=== PATIENT | female | born 1980 | race Caucasian/White ===

== ENCOUNTER 2016-12-18 12:53 | Inpatient (IN) | payer OTHER ==
[2016-12-18] VITALS (10 sets, daily range): BP systolic 102–137; BP diastolic 50–82; PULSE 70–89; RESP 16–18; TEMP 96.7–98.1; O2SAT 95–98
[~2016-12-18] VITALS: Ht 165.1 cm; Wt 106.3 kg
[~2016-12-18 12:53] MED LIST: ADVA250A INH; ALBU8I INH; IBUP600 PO; IMIT25TA PO; LEXA10TA PO; LORTA5 PO; METF-324 PO; TRAM50 PO
[2016-12-18] MEDS ORDERED: LEVO.05 PO (13:16)
[2016-12-18] MEDS ORDERED: VENTAER INH (13:16)
[2016-12-18] MEDS ORDERED: METF-382 PO (13:16)
[2016-12-18] MEDS ORDERED: ADVA250A INH (13:16)
[2016-12-18] MEDS ORDERED: PIOG15TA5 PO (13:16)
[2016-12-18] MEDS ORDERED: ESCI20TA PO (13:16)
[2016-12-18] MEDS ORDERED: SODIUM CHLOR 0.9% 1000 ML INJ 1,000 ML IV SCH (13:19)
[2016-12-18] MEDS ORDERED: LIDOCAINE VISCOUS 2% SOLN 15 ML UDC PO ONE (13:30)
[2016-12-18] MEDS ORDERED: ALUMINUM/MAGNESIUM/SIMETH 30 ML CUP PO ONE (13:30)
[2016-12-18] MEDS ORDERED: ONDANSETRON HCL 4 MG/2 ML VIAL IVP ONE (13:30)
[2016-12-18] MEDS ORDERED: MORPHINE SULFATE 4 MG/ML INJ IV PUSH ONE (13:30)
[2016-12-18] MEDS ORDERED: SODIUM CHLORIDE 0.9% FLUSH 10 ML FLUSH IV FLUSH PRN ×2 (13:30→16:45)
[2016-12-18 13:31] LABS: AUTOMATED NEUTROPHIL # 4.5 TH/MM3 (1.8-7.7); BASOPHIL % 0.3 % (0.0-2.0); EOSINOPHIL # 0.1 TH/MM3 (0-0.4); HEMATOCRIT 37.5 % (35.0-46.0); HEMO FLAGS DIFF FINAL; LYMPH % 25.7 % (9.0-44.0); LYMPHOCYTE # 1.8 TH/MM3 (1.0-4.8); MEAN CELL VOLUME 79.3 FL (80.0-100.0); MEAN CORPUSCULAR HEMOGLOBIN 26.1 PG (27.0-34.0); MEAN CORPUSCULAR HGB CONC 32.9 % (32.0-36.0); MONO % 5.8 % (0.0-8.0); NEUT % 67.2 % (16.0-70.0); PLATELET COUNT 224 TH/MM3 (150-450); RED BLOOD COUNT 4.72 MIL/MM3 (4.00-5.30); RED CELL DISTRIBUTION WIDTH 13.7 % (11.6-17.2); WHITE BLOOD COUNT 6.8 TH/MM3 (4.0-11.0)
--- NOTE | 2016-12-18 13:37 | PD ---
HPI Chief Complaint: Abdominal Pain Time Seen by Provider: 13:12 Travel History International Travel<30 days: No Contact w/Intl Traveler<30days: No Traveled to known affect area: No History of Present Illness HPI 36-year-old female with history of diabetes, here for evaluation of epigastric abdominal pain. Patient reports that the symptoms have been going on for last week, worse today. She reports that she had an upper endoscopy performed yesterday and was told that there is no gastritis or peptic ulcer disease. Pain is described as sharp/pressure like, sometimes worse after eating, sometimes worse with movements. Pain radiates up into her chest. No dyspnea. No known history of cardiac disease. Family history of cardiac disease in her father who recently had CABG. No fevers or chills. History of cholecystectomy and hysterectomy. No other abdominal surgeries. PFSH Past Medical History Asthma: Yes Blood Disorders: No Depression: Yes Cancer: No Cardiovascular Problems: Yes (RAPID HEART RATE; EVAL BY [employer]TE[employer]NCE - WNL) Diabetes: Yes Patient Takes Glucophage: Yes Diminished Hearing: No Endocrine: Yes Gastrointestinal Disorders: Yes (OCCAS ACID REFLUX ) Genitourinary: No Hepatitis: No Hiatal Hernia: No Hypertension: No Immune Disorder: No Medical other: No Musculoskeletal: No Neurologic: No Psychiatric: No Reproductive: Yes (IUD/ENDOMETRIOSIS/PELVIC PAIN/HEAVY MENSTRUATION) Respiratory: Yes (ASTHMA) Thyroid Disease: No Influenza Vaccination: No ?: Not : 2 Para: 2 Tubal Ligation: Yes (1999) Past Surgical History Abdominal Surgery: Yes (LAP CHOLECY 2014; INCISIONAL HERNIA REPAIR 05/06 ) AICD: No Body Medical Devices: NONE Cholecystectomy: Yes Gynecologic Surgery: Yes (TUBAL LIGATION 1999) Hysterectomy: Yes Joint Replacement: No Pacemaker: No Other Surgery: Yes (HERNIA REPAIR) Social History Alcohol Use: Yes (occ) Tobacco Use: No (quit 2 years ago) Substance Use: No Allergies-Medications (Allergen,Severity, Reaction): Coded Allergies: No Known Allergies (Unverified , 12/18/16) Reported Meds & Prescriptions Reported Meds & Active Scripts Active Reported Ventolin Hfa 18 GM Inh (Albuterol Sulfate) 90 Mcg/Act Aer 2 Puff INH Q4-6H PRN Advair Diskus Inh (Fluticasone-Salmeterol Inh) 250-50 Mcg/Blist Aer 1 Puff INH BID Rinse mouth after use. Synthroid (Levothyroxine Sodium) 50 Mcg Tab 50 Mcg PO DAILY Escitalopram (Escitalopram Oxalate) 20 Mg Tab 20 Mg PO DAILY Pioglitazone (Pioglitazone HCl) 15 Mg Tab 15 Mg PO DAILY Metformin ER (Metformin HCl) 1,000 Mg Adrián 1,000 Mg PO DAILY With evening meal Review of Systems Except as stated in HPI: all other systems reviewed are Neg Physical Exam Narrative GENERAL: Well-developed, well-nourished, comfortable, no acute distress. SKIN: Focused skin assessment warm/dry. HEAD: Atraumatic. Normocephalic. EYES: Pupils equal and round. No scleral icterus. No injection or drainage. ENT: Mucous membranes pink and moist. NECK: Trachea midline. No JVD. CARDIOVASCULAR: Regular rate and rhythm. RESPIRATORY: No accessory muscle use. Clear to auscultation. Breath sounds equal bilaterally. GASTROINTESTINAL: Abdomen soft, nondistended. Mild epigastric tenderness without peritoneal signs. Normal bowel sounds. MUSCULOSKELETAL: No obvious deformities. No clubbing. No cyanosis. No edema. NEUROLOGICAL: Awake and alert. No obvious cranial nerve deficits. Motor grossly within normal limits. Normal speech. PSYCHIATRIC: Appropriate mood and affect; insight and judgment normal. Data Data Last Documented VS Vital Signs Date Time Temp Pulse Resp B/P Pulse Ox O2 Delivery O2 Flow Rate FiO2 12/18/16 15:05 87 16 117/52 96 Room Air 12/18/16 12:59 98.1 Orders Complete Blood Count With Diff (12/18/16 13:19) Comprehensive Metabolic Panel (12/18/16 13:19) Lipase (12/18/16 13:19) Prothrombin Time / Inr (Pt) (12/18/16 13:19) Act Partial Throm Time (Ptt) (12/18/16 13:19) Urinalysis - C+S If Indicated (12/18/16 13:19) Ct Abd/Pel W Iv Contrast(Rout) (12/18/16 13:19) Iv Access Insert/Monitor (12/18/16 13:19) Ecg Monitoring (12/18/16 13:19) Oximetry (12/18/16 13:19) Morphine Inj (Morphine Inj) (12/18/16 13:30) Ondansetron Inj (Zofran Inj) (12/18/16 13:30) Sodium Chlor 0.9% 1000 Ml Inj (Ns 1000 M (12/18/16 13:19) Sodium Chloride 0.9% Flush (Ns Flush) (12/18/16 13:30) Electrocardiogram (12/18/16 13:19) Al-Mag Hy-Si 40-40-4 Mg/Ml Liq (Mag-Al P (12/18/16 13:30) Lidocaine 2% Viscous (Xylocaine 2% Visco (12/18/16 13:30) Ckmb (Isoenzyme) Profile (12/18/16 13:19) Troponin I (12/18/16 13:19) Sodium Chlor 0.9% 1000 Ml Inj (Ns 1000 M (12/18/16 14:00) Insulin Human Regular Inj (Novolin R Inj (12/18/16 14:00) Iohexol 350 Inj (Omnipaque 350 Inj) (12/18/16 14:30) Aspirin Chew (Aspirin Chew) (12/18/16 15:00) Nitroglycerin Sl (Nitrostat Sl) (12/18/16 15:00) Admit Order (Ed Use Only) (12/18/16 15:04) Labs Laboratory Tests Test 12/18/16 13:24 White Blood Count 6.8 TH/MM3 Red Blood Count 4.72 MIL/MM3 Hemoglobin 12.3 GM/DL Hematocrit 37.5 % Mean Corpuscular Volume 79.3 FL Mean Corpuscular Hemoglobin 26.1 PG Mean Corpuscular Hemoglobin 32.9 % Concent Red Cell Distribution Width 13.7 % Platelet Count 224 TH/MM3 Mean Platelet Volume 8.4 FL Neutrophils (%) (Auto) 67.2 % Lymphocytes (%) (Auto) 25.7 % Monocytes (%) (Auto) 5.8 % Eosinophils (%) (Auto) 1.0 % Basophils (%) (Auto) 0.3 % Neutrophils # (Auto) 4.5 TH/MM3 Lymphocytes # (Auto) 1.8 TH/MM3 Monocytes # (Auto) 0.4 TH/MM3 Eosinophils # (Auto) 0.1 TH/MM3 Basophils # (Auto) 0.0 TH/MM3 CBC Comment DIFF FINAL Differential Comment Prothrombin Time 10.6 SEC Prothromb Time International 1.0 RATIO Ratio Activated Partial 24.0 SEC Thromboplast Time Urine Collection Type CLEAN CATCH Urine Color STRAW Urine Turbidity CLEAR Urine pH 6.0 Urine Specific [place] 1.035 Urine Protein NEG mg/dL Urine Glucose (UA) 1000 OR GREATER mg/dL Urine Ketones NEG mg/dL Urine Occult Blood NEG Urine Nitrite NEG Urine Bilirubin NEG Urine Leukocyte Esterase NEG Urine Squamous Epithelial 0-5 /hpf Cells Urine Amorphous Sediment FEW Microscopic Urinalysis Comment CULT NOT INDICATED Urine Collection Time 1324 Sodium Level 137 MEQ/L Potassium Level 3.5 MEQ/L Chloride Level 100 MEQ/L Carbon Dioxide Level 22.1 MEQ/L Anion Gap 15 MEQ/L Blood Urea Nitrogen 7 MG/DL Creatinine 0.93 MG/DL Estimat Glomerular Filtration 68 ML/MIN Rate Random Glucose 427 MG/DL Calcium Level 8.5 MG/DL Total Bilirubin 0.3 MG/DL Aspartate Amino Transf 65 U/L (AST/SGOT) Alanine Aminotransferase 91 U/L (ALT/SGPT) Alkaline Phosphatase 74 U/L Total Creatine Kinase 91 U/L Troponin I LESS THAN 0.02 NG/ML Total Protein 7.2 GM/DL Albumin 3.2 GM/DL Lipase 266 U/L [facility] Medical Decision Making Medical Screen Exam Complete: Yes Emergency Medical Condition: Yes Differential Diagnosis ACS, pancreatitis, perforated bowel, gastritis, peptic ulcer disease, hepatobiliary disease, retained gallstone Narrative Course Vital signs are within normal limits. CBC is unremarkable. CMP is remarkable for random glucose of 427, AST 65, ALT 91, otherwise unremarkable. Lipase is 266. Cardiac enzymes are negative. UA shows 1000 or greater glucose. Bicarbonate is 22. The patient is not in DKA. CT abdomen pelvis: CONCLUSION: 1. Small fat-containing umbilical hernia. 2. Fat-containing ventral hernia upper abdomen. 3. Hepatomegaly and hepatic steatosis. 4. Diverticulosis without diverticulitis. Patient was given 2 L normal saline IV. She was made aware of all findings. She is still having some epigastric abdominal discomfort. She was also given 10 units of IV insulin. She was given a dose of aspirin as this could be a chest pain equivalent, and will be admitted for overnight observation for chest pain rule out ACS as well as hyperglycemia. Case discussed with [facility] hospitalist Dr. Gonzalez who will admit the patient to her service. Patient was given a dose of some with one nitroglycerin with significant improvement in pain. Diagnosis Primary Impression: Chest pain Qualified Code: R07.9 - Chest pain, unspecified type Additional Impressions: Epigastric abdominal pain Hyperglycemia Admitting Information Admitting Physician Requests: Observation Mikel Chiang MD Dec 18, 2016 13:37
[2016-12-18 13:38] LABS: BLOOD, URINE NEG (NEG); CHLORIDE 100 MEQ/L (98-107); KETONE, URINE NEG (NEG); NITRITE,URINE NEG (NEG); POTASSIUM 3.5 MEQ/L (3.5-5.1); SODIUM (NA) 137 MEQ/L (136-145)
[2016-12-18 13:40] LABS: GLUCOSE,URINE 1000 OR GREATER mg/dL (NEG)
[2016-12-18 13:41] LABS: METHOD OF COLLECTION CLEAN CATCH; URINE COLOR STRAW (YELLW/STRAW)
[2016-12-18 13:42] LABS: ANION GAP 15 MEQ/L (5-15); BICARBONATE 22.1 MEQ/L (21.0-32.0)
[2016-12-18 13:44] LABS: COMMENT (UR) CULT NOT INDICATED; CULTURE IF INDICATED CULT NOT INDICATED; PROTHROMBIN TIME - PATIENT 10.6 SEC (9.8-11.6); SQUAMOUS EPITHELIAL CELL URINE 0-5 /hpf (0-5)
[2016-12-18 13:55] LABS: ALKALINE PHOSPHATASE 74 U/L (45-117); ALT (GPT) 91 U/L (10-53); AST (GOT) 65 U/L (15-37); BLOOD UREA NITROGEN 7 MG/DL (7-18); CREATINE KINASE 91 U/L (26-192); GLOMERULAR FILTRATION RATE 68 ML/MIN (>89); TOTAL BILIRUBIN ADULT 0.3 MG/DL (0.2-1.0)
[2016-12-18] MEDS ORDERED: INSULIN HUMAN REGULAR 1,000 UNITS/10 ML VIAL IV PUSH ONE (14:00)
[2016-12-18] MEDS ORDERED: SODIUM CHLOR 0.9% 1000 ML INJ 1,000 ML IV ONE (14:00)
[2016-12-18] MEDS: METFORMIN HOLD POST IV CONTRAST SCH (14:20)
[2016-12-18] MEDS ORDERED: IOHEXOL 350 MG/ML 10 ML VIAL (for RAD DIAG) IV ONE (14:30)
--- NOTE | 2016-12-18 14:39 | RADHPO ---
EXAM DATE/TIME: 12/18/2016 14:11 [place] COMPARISON: CT ABDOMEN & PELVIS W CONTRAST, September 24, 2014, 0:41. INDICATIONS : Upper abdomen pain for one week. IV CONTRAST: 70 cc Omnipaque 350 (iohexol) IV ORAL CONTRAST: No oral contrast ingested. RADIATION DOSE: 20.20 CTDIvol (mGy) MEDICAL HISTORY : endometriosis, diabetes SURGICAL HISTORY : Tubal ligation. Hysterectomy.Cholecystectomy.hernia repair ENCOUNTER: Initial ACUITY: 1 week PAIN SCALE: 7/10 LOCATION: Bilateral upper quadrant TECHNIQUE: Volumetric scanning of the abdomen and pelvis was performed. Using automated exposure control and ad justment of the mA and/or kV according to patient size, radiation dose was kept as low as reasonably achievable to obtain optimal diagnostic quality images. FINDINGS: There is diffuse hepatic steatosis. There is a transverse abdominal wall defect in the upper abdomen measuring 3.6 cm. There is herniated intra-abdominal fat identified, 7 cm across, and 2 cm in AP dime nsion. This is new from previous. The patient is status post hysterectomy and cholecystectomy. Spleen , pancreas, adrenal glands, bilateral kidneys are normal. Appendix is normal. Urinary bladder contain s a diverticulum posteriorly measuring 1.4 cm neck, 3 cm in transverse dimension and 2.1 cm in AP dim ension. There is diverticulosis of the sigmoid colon without diverticulitis. Small fat-containing umb ilical hernia. Liver measures 24 cm in cephalocaudal dimension. Lung bases are clear. Osseous structu res are intact. CONCLUSION: 1. Small fat-containing umbilical hernia. 2. Fat-containing ventral hernia upper abdomen. 3. Hepatomegaly and hepatic steatosis. 4. Diverticulosis without diverticulitis. Perez Pal MD on December 18, 2016 at 14:35 Board Certified Radiologist. This report was verified electronically.
[2016-12-18] MEDS: NITROGLYCERIN 0.4 MG SL 25 TABS/BTL SL SCH ×2 (14:55→15:08)
[2016-12-18] MEDS ORDERED: ASPIRIN 81 MG CHEW TAB PO ONE (15:00)
[2016-12-18] MEDS ORDERED: ZOLPIDEM TARTRATE 5 MG TAB PO PRN (16:45)
[2016-12-18] MEDS ORDERED: NALOXONE HCL 0.4 MG/ML AMP IV PRN (16:45)
[2016-12-18] MEDS ORDERED: ALBUTEROL SULFATE 90 MCG/ACT HFA 8 GM INHALER INH PRN (16:45)
[2016-12-18] MEDS ORDERED: GLUCAGON 1 MG/ML VIAL OTHER PRN (17:00)
[2016-12-18] MEDS ORDERED: DEXTROSE 50% IN WATER 50 ML VIAL(D50) IV PRN (17:00)
[2016-12-18] MEDS: ESCITALOPRAM OXALATE 20 MG TAB PO SCH (17:17)
[2016-12-18] MEDS: ENOXAPARIN SODIUM 40 MG/0.4 ML SYRINGE SQ SCH (17:17)
[2016-12-18] MEDS: ACETAMINOPHEN 325 MG TAB PO PRN ×2 (17:17→18:17)
[2016-12-18] MEDS: metFORMIN HCL 500 MG TAB PO SCH ×2 (17:19→17:26)
[2016-12-18] MEDS ORDERED: ONDANSETRON HCL 4 MG/2 ML VIAL IV ONE (18:30)
[2016-12-18] MEDS: ACETAMINOPHEN/HYDROcodone 325 MG/5 MG TAB PO PRN ×2 (18:43→23:14)
--- NOTE | 2016-12-18 18:47 | EKG ---
Date Performed: 12/18/2016 Time Performed: 13:21:00 PTAGE: 36 years EKG: Sinus rhythm Normal ECG PREVIOUS TRACING : 01/23/2016 18.35 Compared to prior tracing no significant change DOCTOR: Lucina Severino Interpretating Date/Time 12/18/2016 18:46:41
[2016-12-18] MEDS: SODIUM CHLOR 0.45% 1000 ML INJ 1,000 ML IV SCH (20:35)
[2016-12-18] MEDS ORDERED: INSULIN HUMAN REGULAR 1,000 UNITS/10 ML VIAL SQ SCH (21:00)
[2016-12-18] MEDS: DOCUSATE SODIUM 100 MG CAP PO SCH (21:28)
[2016-12-18] MEDS: [UNRECOGNIZED DRUG - REMARK] SQ SCH (21:28)
[2016-12-18] MEDS: SODIUM CHLORIDE 0.9% FLUSH 10 ML FLUSH IV FLUSH SCH (21:28)
[2016-12-18] MEDS: BUDESONIDE-FORMOTEROL 160/4.5 MCG INHALER INH SCH (21:30)
[2016-12-19] VITALS (7 sets, daily range): BP systolic 113–144; BP diastolic 70–98; PULSE 61–69; RESP 14–19; TEMP 96.7–97.7; O2SAT 95–99
[2016-12-19] MEDS: ONDANSETRON HCL 4 MG/2 ML VIAL IVP PRN ×3 (04:17→17:07)
[2016-12-19] MEDS: ACETAMINOPHEN/HYDROcodone 325 MG/5 MG TAB PO PRN ×3 (04:18→09:35)
[2016-12-19] MEDS: LEVOTHYROXINE SODIUM 50 MCG TAB PO SCH (05:34)
[2016-12-19] MEDS: [UNRECOGNIZED DRUG - REMARK] SQ SCH ×4 (05:37→21:39)
[2016-12-19] MEDS: SODIUM CHLOR 0.45% 1000 ML INJ 1,000 ML IV SCH ×2 (06:21→21:41)
--- NOTE | 2016-12-19 08:15 | MH ---
cc: LOIS URBINA MD DATE OF ADMISSION: 12/18/2016 CHIEF COMPLAINT Abdominal pain. HISTORY OF PRESENT ILLNESS This is a 36-year-old female with past medical-surgical history significant for asthma, depression, diabetes mellitus, history of a rapid heart rate, acid reflux, history of endometriosis status post hysterectomy, history of heavy menstrual cycles, asthma, tubal ligation in the past, lap quita in April 2015, incisional hernia repair, history of cholecystectomy, came to the ER at [facility] complaining of epigastric area abdominal pain which was about 8-9/10 and it is like a squeezing and aching in nature and worse with eating or drinking and no history of gastritis or peptic ulcer disease and radiates into her chest. No dyspnea. No palpitation and she has no history of cardiac disease. Other than that nothing significant. PAST MEDICAL-SURGICAL HISTORY As dictated above. SOCIAL HISTORY She drinks occasionally. Denies any drug abuse and is ex-smoker, quit 2 years ago. She lives with her at home. 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 FAMILY HISTORY Family history is significant for coronary artery disease. ALLERGIES NO KNOWN DRUG ALLERGIES. MEDICATIONS Include: 1. Ventolin HFA two puff inhalation q. 4-6 hours. 2. Advair Diskus 250/50 one puff inhalation twice a day. 3. Synthroid 50 mcg p.o. daily. 4. Lexapro 20 mg p.o. daily. 5. Pioglitazone 15 mg p.o. daily. 6. Metformin ER 1000 mg p.o. daily. REVIEW OF SYSTEMS Review of systems positive for epigastric pain and mild nausea. All other review of systems are negative. PHYSICAL EXAMINATION GENERAL: This is a 36-year-old female laying on the bed, not in acute distress. VITAL SIGNS: Temperature 96.9, heart rate 61, respirations 18, blood pressure 120/78, O2 saturation 95% on room air. HEENT: Normocephalic, atraumatic. EOMI. PERRL. Oral mucosa moist. NECK: Neck is supple. No visible thyromegaly or neck mass. Trachea central. CVS: Regular rate and rhythm. RESPIRATORY: Respirations clear to auscultation bilaterally. ABDOMEN: Soft, tender at the epigastric area on superficial palpation, deep palpation not done. Bowel sounds audible. EXTREMITIES: No cyanosis or clubbing. Full range of motion of all extremities. NEURO: Awake, alert, oriented x4. No focal deficits. SKIN: Warm and dry. PSYCHE: The patient is cooperative. Mood and affect are normal. LABORATORY DATA Include CBC is totally unremarkable except for MCV 79.3 low, MCH is 26.1 low. BMP totally unremarkable except for GFR 68, blood glucose 427 high. Troponin-I less than 0.02, total protein 7.2, albumin 3.2. Lipid panel is pending. Lipase is 266, TSH, free T4 pending. Urine examination shows glucose of 1000 or greater. PT 10.6, INR 1.0, APTT 24.0 which is low. IMAGING STUDIES CT abdomen and pelvis was done and shows small fat containing umbilical hernia, fat containing ventral hernia under abdomen, hepatomegaly and hepatic steatosis, diverticulosis without evidence of diverticulitis. ASSESSMENT/PLAN 1. This is a 36-year female who came to the ER diagnosed with abdominal pain, exact etiology not known. CT abdomen and pelvis does not show anything acute. GI is consulted. Lipase is normal. Further recommendation per GI. 2. History of diabetes mellitus, ADA 1800 calorie diet. NovoLog low-dose sliding scale. Check blood sugars a.c. and h.s. 3. History of COPD. Continue with Ventolin and Advair Diskus. 4. History of hypothyroidism. Continue Synthroid 50 mcg p.o. daily. 5. Small fat containing umbilical hernia. 6. Fat containing ventral hernia upper abdomen. 7. DVT prophylaxis, Lovenox 40 mg subcutaneous daily. 8. GI prophylaxis, Protonix 40 mg p.o. daily. We are going to manage the patient on a daily basis and make recommendation on a daily basis. Lois Urbina MD EA/CYRUS /7:34 AM /7:57 AM
[2016-12-19] MEDS: metFORMIN HCL 500 MG TAB PO SCH ×2 (09:00→18:00)
[2016-12-19] MEDS: BUDESONIDE-FORMOTEROL 160/4.5 MCG INHALER INH SCH ×2 (09:00→21:38)
[2016-12-19] MEDS: SODIUM CHLORIDE 0.9% FLUSH 10 ML FLUSH IV FLUSH SCH ×2 (09:00→21:41)
[2016-12-19] MEDS: DOCUSATE SODIUM 100 MG CAP PO SCH ×2 (09:37→21:38)
[2016-12-19] MEDS: ESCITALOPRAM OXALATE 20 MG TAB PO SCH (09:37)
[2016-12-19] MEDS: PIOGLITAZONE HCL 15 MG TAB PO SCH (09:37)
[2016-12-19 10:33] LABS: FREE T4 1.06 NG/DL (0.76-1.46); HDL CHOLESTEROL 37.4 MG/DL (40.0-60.0)
--- NOTE | 2016-12-19 10:48 | PD.CONS ---
HPI History of Present Illness This is a 36 year old female with known history of diabetes who for the past couple of weeks has had a hard time controlling her diabetes and who last Tuesday began to experience upper abdominal pain localized mostly to the upper mid and right upper quadrant abdomen no radiation no specific characteristics at the site of her prior surgery she had an open cholecystectomy which resulted in a incisional hernia that required repair with a mesh that apparently she could not tolerate the mesh and so they had to go in a third time to remove the mesh late last year she said that she has done well since that surgery only to be faced with this pain that started about a week ago she is currently comfortable in bed she saw her tissue rewinder who performed an EGD last Tuesday and apparently everything was okay except for possibly some gastritis the patient has nausea but denies any vomiting denies any melena hematochezia hematemesis coffee-ground emesis PFSH Past Medical History Asthma, depression, diabetes, reflux, history of endometriosis Past Surgical History Tubal ligation, cholecystectomy, incisional hernia repair, hysterectomy, mesh removal Social History Alcohol Use: Yes (occ) Tobacco Use: No (quit 2 years ago) Substance Use: No Allergies-Medications (Allergen,Severity, Reaction): Coded Allergies: No Known Allergies (Unverified , 12/18/16) Reported Meds & Prescriptions Reported Meds & Active Scripts Active Reported Ventolin Hfa 18 GM Inh (Albuterol Sulfate) 90 Mcg/Act Aer 2 Puff INH Q4-6H PRN Advair Diskus Inh (Fluticasone-Salmeterol Inh) 250-50 Mcg/Blist Aer 1 Puff INH BID Rinse mouth after use. Synthroid (Levothyroxine Sodium) 50 Mcg Tab 50 Mcg PO DAILY Escitalopram (Escitalopram Oxalate) 20 Mg Tab 20 Mg PO DAILY Pioglitazone (Pioglitazone HCl) 15 Mg Tab 15 Mg PO DAILY Metformin ER (Metformin HCl) 1,000 Mg Adrián 1,000 Mg PO DAILY With evening meal Coded Allergies: No Known Allergies (Unverified , 12/18/16) Medications Ventolin Hfa 18 GM Inh (Albuterol Sulfate) 90 Mcg/Act Aer 2 Puff INH Q4-6H PRN Advair Diskus Inh (Fluticasone-Salmeterol Inh) 250-50 Mcg/Blist Aer 1 Puff INH BID Rinse mouth after use. Synthroid (Levothyroxine Sodium) 50 Mcg Tab 50 Mcg PO DAILY Escitalopram (Escitalopram Oxalate) 20 Mg Tab 20 Mg PO DAILY Pioglitazone (Pioglitazone HCl) 15 Mg Tab 15 Mg PO DAILY Metformin ER (Metformin HCl) 1,000 Mg Adrián 1,000 Mg PO DAILY With evening meal Family History Noncontributory Social History Patient reports alcohol use but no tobacco Review of Systems ROS Review of systems Patient denies any headache dizziness blurry vision, denies any chest pain shortness of breath cough fever chills, Denies any palpitations or fatigue denies any polyuria dysuria hematuria, denies any numbness tingling or weakness, denies any skin rash pruritus or jaundice, denies any easy bruising or bleeding tendency, denies any recent change in mood GI Exam Vitals I&O Vital Signs Date Time Temp Pulse Resp B/P Pulse Ox O2 Delivery O2 Flow Rate FiO2 12/19/16 08:00 97.3 61 18 134/95 96 12/19/16 04:18 96.9 61 18 120/78 95 12/19/16 00:47 96.7 69 14 121/77 99 12/18/16 20:43 96.7 70 18 119/80 97 12/18/16 20:27 20 12/18/16 20:15 70 12/18/16 19:28 98 21 12/18/16 17:26 96.9 82 16 136/72 97 12/18/16 17:10 98 21 12/18/16 15:25 89 16 102/50 95 Room Air 12/18/16 15:05 87 16 117/52 96 Room Air 12/18/16 14:49 89 18 136/72 96 Room Air 12/18/16 13:22 97 Room Air 12/18/16 12:59 98.1 86 18 137/82 97 I/O 12/18/16 12/18/16 12/18/16 12/19/16 12/19/16 12/19/16 07:00 15:00 23:00 07:00 15:00 23:00 Intake Total 2000 ml 975 ml Balance 2000 ml 975 ml Intake IV Total 2000 ml 975 ml # Voids 2 1 Imaging Last 48 hours Impressions Abdomen/Pelvis CT 12/18/16 1319 Signed Impressions: Service Date/Time: Sunday, December 18, 2016 14:11 - CONCLUSION: 1. Small fat-containing umbilical hernia. 2. Fat-containing ventral hernia upper abdomen. 3. Hepatomegaly and hepatic steatosis. 4. Diverticulosis without diverticulitis. Perez Pal MD Laboratory Test 12/18/16 12/19/16 13:24 06:45 White Blood Count 6.8 TH/MM3 Red Blood Count 4.72 MIL/MM3 Hemoglobin 12.3 GM/DL Hematocrit 37.5 % Mean Corpuscular Volume 79.3 FL Mean Corpuscular Hemoglobin 26.1 PG Mean Corpuscular Hemoglobin 32.9 % Concent Red Cell Distribution Width 13.7 % Platelet Count 224 TH/MM3 Mean Platelet Volume 8.4 FL Neutrophils (%) (Auto) 67.2 % Lymphocytes (%) (Auto) 25.7 % Monocytes (%) (Auto) 5.8 % Eosinophils (%) (Auto) 1.0 % Basophils (%) (Auto) 0.3 % Neutrophils # (Auto) 4.5 TH/MM3 Lymphocytes # (Auto) 1.8 TH/MM3 Monocytes # (Auto) 0.4 TH/MM3 Eosinophils # (Auto) 0.1 TH/MM3 Basophils # (Auto) 0.0 TH/MM3 CBC Comment DIFF FINAL Differential Comment Prothrombin Time 10.6 SEC Prothromb Time International 1.0 RATIO Ratio Activated Partial 24.0 SEC Thromboplast Time Urine Collection Type CLEAN CATCH Urine Color STRAW Urine Turbidity CLEAR Urine pH 6.0 Urine Specific [place] 1.035 Urine Protein NEG mg/dL Urine Glucose (UA) 1000 OR GREATER mg/dL Urine Ketones NEG mg/dL Urine Occult Blood NEG Urine Nitrite NEG Urine Bilirubin NEG Urine Leukocyte Esterase NEG Urine Squamous Epithelial 0-5 /hpf Cells Urine Amorphous Sediment FEW Microscopic Urinalysis Comment CULT NOT INDICATED Urine Collection Time 1324 Sodium Level 137 MEQ/L Potassium Level 3.5 MEQ/L Chloride Level 100 MEQ/L Carbon Dioxide Level 22.1 MEQ/L Anion Gap 15 MEQ/L Blood Urea Nitrogen 7 MG/DL Creatinine 0.93 MG/DL Estimat Glomerular Filtration 68 ML/MIN Rate Random Glucose 427 MG/DL Calcium Level 8.5 MG/DL Total Bilirubin 0.3 MG/DL Aspartate Amino Transf 65 U/L (AST/SGOT) Alanine Aminotransferase 91 U/L (ALT/SGPT) Alkaline Phosphatase 74 U/L Total Creatine Kinase 91 U/L Troponin I LESS THAN 0.02 LESS THAN 0.02 NG/ML NG/ML Total Protein 7.2 GM/DL Albumin 3.2 GM/DL Lipase 266 U/L Triglycerides Level 303 MG/DL Cholesterol Level 182 MG/DL LDL Cholesterol 84 MG/DL HDL Cholesterol 37.4 MG/DL Cholesterol/HDL Ratio 4.86 RATIO Free Thyroxine 1.06 NG/DL Thyroid Stimulating Hormone 6.230 uIU/ML 3rd Gen Physical Examination HEENT: Pupils round and reactive to light; normocephalic; atraumatic; no jaundice. Throat is clear. NECK: Neck is supple, no JVD, no lymphadenopathy. CHEST: Chest is clear to auscultation and percussion. CARDIAC: Regular rate and rhythm with no murmur gallop or rubs. ABDOMEN: Soft, nondistended, mild tenderness around the surgical scar and a small umbilical hernia; no hepatosplenomegaly; bowel sounds are present in all four quadrants. EXTREMITIES: No clubbing, cyanosis, or edema. SKIN: Normal; no rash; no jaundice. CONSULTING PRACTICE MANAGER: No focal deficits; alert and oriented times three. Assessment and Plan Plan Abdominal pain, upper abdomen possibly abdominal wall pain especially knowing that she had a negative EGD last Tuesday Hyperglycemia and poorly controlled diabetes certainly could be a contribution factor to her nausea and her abdominal pain through gastric inhibition and possibly even underlying gastroparesis Elevated liver function tests with abnormal findings on CT suggestive of fatty liver I will defer to her primary tissue rewinder to further evaluate follow-up and investigate the abnormal liver function tests but most likely this is steatohepatitis and patient is informed to control her diabetes and be on a heart healthy diet The abdominal pain is probably abdominal wall pain possibly related to poor diabetes control so at this point we'll recommend pain control and diabetes control Further recommendations shall depend on her hospital course but may consider pain management for local injection if pain persists Matthew Robb MD Dec 19, 2016 10:48
[2016-12-19] MEDS ORDERED: FLUCONAZOLE 100 MG TAB PO ONE (11:00)
[2016-12-19] MEDS: oxyCODONE/ACETAMINOPHEN 5 MG/325 MG TAB PO PRN ×3 (11:22→23:29)
[2016-12-19] MEDS: METFORMIN HOLD POST IV CONTRAST SCH (14:20)
[2016-12-19] MEDS: ENOXAPARIN SODIUM 40 MG/0.4 ML SYRINGE SQ SCH (17:08)
--- NOTE | 2016-12-19 18:28 | PD.CONS ---
HPI Service Cardiology Consult Requested By Primary Care Physician Polina Irwin History of Present Illness 36 y/o F with pmhx significant for asthma, depression, diabetes mellitus, palpitations, acid reflux, endometriosis status post hysterectomy that presented to the ER [place] with complaints of epigastric pain, squeezing in nature, worse with eating or drinking. Pain radiates into her chest. No dyspnea. No palpitations. Of note she had an EGD last Tuesday showing gastritis. Cardiology has been consulted for chest pain Review of Systems Consitutional: DENIES: Fatigue, Fever, Chills, Weight gain, Weight loss Eyes: DENIES: Amaurosis [place], Change in vision HEENT: DENIES: Lightheadedness, Change in hearing Respiratory: DENIES: See HPI, Cough, Snoring, Shortness of breath, Wheezing, Sputum production Cardiovascular: DENIES: See HPI, Chest pain, Palpitations, Syncope, Tachycardia Gastrointestinal: COMPLAINS OF: Reflux, DENIES: Nausea, Vomiting, Change in bowel habits, Bloody stools, Melena Genitourinary: DENIES: Urinary incontinence, Difficulty voiding Integumentary: DENIES: Rash Neurologic: DENIES: Tingling or numbness, Memory problems, Poor Balance, Stroke symptoms Musculoskeletal: DENIES: Joint pain, Muscle pain, Limited range of motion, Back pain Psychiatric: DENIES: Anxiety, Depression, Sleep disturbances Hematologic: DENIES: Bruising tendencies, Bleeding tendencies Endocrine: DENIES: Weight gain, Weight loss, Thyroid disease Past Family Social History Allergies: Coded Allergies: No Known Allergies (Unverified , 12/18/16) Past Medical History asthma, depression, diabetes mellitus, palpitations, acid reflux, endometriosis status post hysterectomy Reported Medications Reported Meds & Active Scripts Active Reported Ventolin Hfa 18 GM Inh (Albuterol Sulfate) 90 Mcg/Act Aer 2 Puff INH Q4-6H PRN Advair Diskus Inh (Fluticasone-Salmeterol Inh) 250-50 Mcg/Blist Aer 1 Puff INH BID Rinse mouth after use. Synthroid (Levothyroxine Sodium) 50 Mcg Tab 50 Mcg PO DAILY Escitalopram (Escitalopram Oxalate) 20 Mg Tab 20 Mg PO DAILY Pioglitazone (Pioglitazone HCl) 15 Mg Tab 15 Mg PO DAILY Metformin ER (Metformin HCl) 1,000 Mg Adrián 1,000 Mg PO DAILY With evening meal Active Ordered Medications Current Medications Medications (Trade) Dose Ordered Sig/Kinsey Route Start Time Stop Time Status Last Admin Miscellaneous Information HOLD METFORMIN FOR... Q24H .XX 12/18/16 14:20 12/20/16 14:19 (1/2 NS 1000 ml Inj) 1,000 ml @ 75 mls/hr [id number] IV 12/18/16 16:34 12/19/16 06:21 (NS Flush) 2 ml UNSCH PRN IV FLUSH 12/18/16 16:45 (NS Flush) 2 ml BID IV FLUSH 12/18/16 21:00 12/18/16 21:28 (Tylenol) 650 mg Q4H PRN PO 12/18/16 16:45 12/18/16 18:17 (Zofran Inj) 4 mg Q6H PRN IVP 12/18/16 16:45 12/19/16 17:07 (Colace) 100 mg Q12H PO 12/18/16 21:00 12/19/16 09:37 (Ambien) 5 mg HS PRN PO 12/18/16 16:45 (Lovenox Inj) 40 mg Q24H SQ 12/18/16 18:00 12/19/16 17:08 (Narcan Inj) 0.4 mg UNSCH PRN IV 12/18/16 16:45 (Lexapro) 20 mg DAILY PO 12/18/16 17:00 12/19/16 09:37 (Synthroid) 50 mcg DAILY@06 PO 12/19/16 06:00 12/19/16 05:34 (Actos) 15 mg DAILY PO 12/19/16 09:00 12/19/16 09:37 (Symbicort 160-4.5 Inh) 2 puff BID INH 12/18/16 21:00 12/18/16 21:30 (Glucophage) 500 mg BIDPC PO 12/18/16 18:00 (D50w (Vial) Inj) 25 ml UNSCH PRN IV 12/18/16 17:00 (Glucagon Inj) 1 mg UNSCH PRN OTHER 12/18/16 17:00 (Percocet 5-325 Mg) 1 tab Q6H PRN PO 12/19/16 11:00 12/19/16 17:08 Family History significant for coronary artery disease. Physical Exam Vital Signs Vital Signs Date Time Temp Pulse Resp B/P Pulse Ox O2 Delivery O2 Flow Rate FiO2 12/19/16 16:00 97.6 66 18 129/84 96 12/19/16 12:00 97.7 65 19 129/98 95 12/19/16 08:00 97.3 61 18 134/95 96 12/19/16 04:18 96.9 61 18 120/78 95 12/19/16 00:47 96.7 69 14 121/77 99 12/18/16 20:43 96.7 70 18 119/80 97 12/18/16 20:27 20 12/18/16 20:15 70 12/18/16 19:28 98 21 Laboratory Laboratory Tests Test 12/19/16 06:45 Troponin I LESS THAN 0.02 Triglycerides Level 303 Cholesterol Level 182 LDL Cholesterol 84 HDL Cholesterol 37.4 Cholesterol/HDL Ratio 4.86 Free Thyroxine 1.06 Thyroid Stimulating Hormone 6.230 3rd Gen Result Diagram: 12/18/16 1324 12/18/16 1324 Imaging Last Impressions Abdomen/Pelvis CT 12/18/16 1319 Signed Impressions: Service Date/Time: Sunday, December 18, 2016 14:11 - CONCLUSION: 1. Small fat-containing umbilical hernia. 2. Fat-containing ventral hernia upper abdomen. 3. Hepatomegaly and hepatic steatosis. 4. Diverticulosis without diverticulitis. Perez Pal MD Assessment and Plan Problem List: (1) Chest pain Assessment and Plan: 36 y/o F with cardiac risk factors that include DM consulted for non cardiac chest pain. EKG unremarkable. Negative cardiac markers. All of her complaints are abdominal in nature. On exam she is tender on palpation to the epigastric region. No need for further cardiac work up at this time. Therapeutic lifestyle changes, exercise education and diet advise. Consider starting PPI. GI follow up. Thank you for the opportunity to participate in the care of this patient. Sign off. (2) Epigastric abdominal pain (3) Hyperglycemia Problem Qualifiers (1) Chest pain: Qualified Code: R07.9 - Chest pain, unspecified type Jorge Benson MD Dec 19, 2016 18:28
[2016-12-20] VITALS: BP 113/70; PULSE 74; RESP 18; TEMP 97.8; O2SAT 96
[2016-12-20 04:00] VITALS: BP 108/59; PULSE 69; RESP 18; TEMP 97.1; O2SAT 94
[2016-12-20] MEDS: LEVOTHYROXINE SODIUM 50 MCG TAB PO SCH (05:54)
[2016-12-20] MEDS: ONDANSETRON HCL 4 MG/2 ML VIAL IVP PRN (05:59)
[2016-12-20] MEDS: [UNRECOGNIZED DRUG - REMARK] SQ SCH (06:01)
[2016-12-20] MEDS: oxyCODONE/ACETAMINOPHEN 5 MG/325 MG TAB PO PRN (06:02)
[2016-12-20 06:50] LABS: AUTOMATED NEUTROPHIL # 3.5 TH/MM3 (1.8-7.7); BASOPHIL % 0.6 % (0.0-2.0); EOSINOPHIL # 0.1 TH/MM3 (0-0.4); EOSINOPHIL % 2.1 % (0.0-4.0); HEMATOCRIT 36.1 % (35.0-46.0); HEMO FLAGS DIFF FINAL; LYMPH % 29.7 % (9.0-44.0); LYMPHOCYTE # 1.7 TH/MM3 (1.0-4.8); MEAN CORPUSCULAR HEMOGLOBIN 26.4 PG (27.0-34.0); MONO % 5.3 % (0.0-8.0); NEUT % 62.3 % (16.0-70.0); PLATELET COUNT 195 TH/MM3 (150-450); RED BLOOD COUNT 4.51 MIL/MM3 (4.00-5.30); RED CELL DISTRIBUTION WIDTH 13.8 % (11.6-17.2); WHITE BLOOD COUNT 5.6 TH/MM3 (4.0-11.0)
[2016-12-20 06:58] LABS: CHLORIDE 103 MEQ/L (98-107); POTASSIUM 3.7 MEQ/L (3.5-5.1); SODIUM (NA) 139 MEQ/L (136-145)
[2016-12-20 07:05] LABS: ANION GAP 9 MEQ/L (5-15); BICARBONATE 26.6 MEQ/L (21.0-32.0)
[2016-12-20 07:25] LABS: ALKALINE PHOSPHATASE 65 U/L (45-117); ALT (GPT) 93 U/L (10-53); AST (GOT) 70 U/L (15-37); BLOOD UREA NITROGEN 4 MG/DL (7-18); GLOMERULAR FILTRATION RATE 127 ML/MIN (>89); TOTAL BILIRUBIN ADULT 0.3 MG/DL (0.2-1.0)
--- NOTE | 2016-12-20 08:16 | HHI.PR ---
Subjective History of Present Illness Patient feel better GI and Cardiology input noted. wants to go home ok to DC Per GI and Cardiology. Review of Systems GI/Abdomen GI/Abdomen Remarks mild epigastric pain. Vitals/Results Intake & Output 12/19/16 12/19/16 12/20/16 15:00 23:00 07:00 Intake Total 500 ml 1800 ml Balance 500 ml 1800 ml Intake Oral 500 ml IV Total 1800 ml # Voids 2 # Bowel Movements 0 Vital Signs Vital Signs Date Time Temp Pulse Resp B/P Pulse Ox O2 Delivery O2 Flow Rate FiO2 12/20/16 04:00 97.1 69 18 108/59 94 12/20/16 00:18 20 12/20/16 00:00 97.8 74 18 113/70 96 12/19/16 21:00 63 12/19/16 20:00 96.9 64 18 113/70 95 12/19/16 16:00 97.6 66 18 129/84 96 12/19/16 12:00 97.7 65 19 129/98 95 CBC/BMP: 12/20/16 0540 12/20/16 0540 Lab Results Laboratory Tests Test 12/20/16 05:40 White Blood Count 5.6 TH/MM3 Red Blood Count 4.51 MIL/MM3 Hemoglobin 11.9 GM/DL Hematocrit 36.1 % Mean Corpuscular Volume 80.0 FL Mean Corpuscular Hemoglobin 26.4 PG Mean Corpuscular Hemoglobin 33.0 % Concent Red Cell Distribution Width 13.8 % Platelet Count 195 TH/MM3 Mean Platelet Volume 8.9 FL Neutrophils (%) (Auto) 62.3 % Lymphocytes (%) (Auto) 29.7 % Monocytes (%) (Auto) 5.3 % Eosinophils (%) (Auto) 2.1 % Basophils (%) (Auto) 0.6 % Neutrophils # (Auto) 3.5 TH/MM3 Lymphocytes # (Auto) 1.7 TH/MM3 Monocytes # (Auto) 0.3 TH/MM3 Eosinophils # (Auto) 0.1 TH/MM3 Basophils # (Auto) 0.0 TH/MM3 CBC Comment DIFF FINAL Differential Comment Sodium Level 139 MEQ/L Potassium Level 3.7 MEQ/L Chloride Level 103 MEQ/L Carbon Dioxide Level 26.6 MEQ/L Anion Gap 9 MEQ/L Blood Urea Nitrogen 4 MG/DL Creatinine 0.54 MG/DL Estimat Glomerular Filtration 127 ML/MIN Rate Random Glucose 186 MG/DL Calcium Level 8.0 MG/DL Total Bilirubin 0.3 MG/DL Aspartate Amino Transf 70 U/L (AST/SGOT) Alanine Aminotransferase 93 U/L (ALT/SGPT) Alkaline Phosphatase 65 U/L Total Protein 6.7 GM/DL Albumin 2.9 GM/DL Physical Exam General General Appearance: Well Developed, Well Nourished, No Acute Distress, Comfortable Eyes Eye Exam: Pupils Equal, Pupils Reactive, Sclera White, Extraocular Movement Intact Throat Throat Exam: Oral Mucosa [place] & Moist, Oral Pharynx Normal Neck Neck Exam: Neck Supple, Trachea Midline Pulmonary Resp Exam: Clear Bilaterally, Breath Sounds Equal, No Distress Cardiology CV Exam: Regular, Normal Sinus Rhythm Gastrointestinal/Abdomen GI Exam: Soft GI Remarks mild epigastric tenderness. Integumentary Skin Exam: Clear, Warm, Dry, Intact, Normal Turgor Extremeties Extremities Exam: No Edema Neurologic Neuro Exam: Alert, Awake, Oriented, Moving All Extremities, No Focal Deficits Psychiatric Psych Exam: Appropriate Responses PUD Prophylasis PUD Prophylaxis: Protonix Assessment/Plan Assessment/Plan ASSESSMENT/PLAN 1. This is a 36-year female who came to the ER diagnosed with abdominal pain,/ chest pain exact etiology not known. CT abdomen and pelvis does not show anything acute. GI and cardiology input noted. Lipase is normal. 2. History of diabetes mellitus, ADA 1800 calorie diet. NovoLog low-dose sliding scale. Check blood sugars a.c. and h.s. 3. History of COPD. Continue with Ventolin and Advair Diskus. 4. History of hypothyroidism. Continue Synthroid 50 mcg p.o. daily. 5. Small fat containing umbilical hernia. 6. Fat containing ventral hernia upper abdomen. 7. DVT prophylaxis, Lovenox 40 mg subcutaneous daily. 8. GI prophylaxis, Protonix 40 mg p.o. daily. wants to go home ok to DC Per GI and Cardiology. ok to DC home today. f/u with PCP/Cardiology 1 week. condition at discharge good. Diet cardiac. activity as tolerated. medicine see discharge medicine in list. Discussed Condition with: Patient Devyn Glass MD December 20, 2016 08:16
[2016-12-20] MEDS ORDERED: LEVO.05 PO (08:32)
[2016-12-20] MEDS ORDERED: FENO145T2 PO (08:32)
[2016-12-20] MEDS ORDERED: FENOFIBRATE 145 MG TAB PO SCH (09:00)
[2016-12-20] MEDS: SODIUM CHLORIDE 0.9% FLUSH 10 ML FLUSH IV FLUSH SCH (09:00)
[2016-12-20] MEDS: BUDESONIDE-FORMOTEROL 160/4.5 MCG INHALER INH SCH (09:12)
[2016-12-20] MEDS: metFORMIN HCL 500 MG TAB PO SCH (09:12)
[2016-12-20] MEDS: ESCITALOPRAM OXALATE 20 MG TAB PO SCH (09:12)
[2016-12-20] MEDS: DOCUSATE SODIUM 100 MG CAP PO SCH (09:12)
[2016-12-20] MEDS: PIOGLITAZONE HCL 15 MG TAB PO SCH (09:12)
[2016-12-20] MEDS: SODIUM CHLOR 0.45% 1000 ML INJ 1,000 ML IV SCH (09:13)
[2016-12-21] MEDS ORDERED: LEVOTHYROXINE SODIUM 75 MCG TAB PO SCH (06:00)
== END 2016-12-20 09:48 | disposition home or self-care (01) | DRG 392 ==
LOC: PHED 12:53 → PHEDA 15:06 → PH3B 16:06 → OBSVTOIN 16:37
PROVIDERS: ADMIT Family Medicine; ATTEND Family Medicine
DX: R10.13 Epigastric pain (principal); E11.65 Type 2 diabetes mellitus with hyperglycemia; K75.81 Nonalcoholic steatohepatitis (NASH); R07.89 Other chest pain; K42.9 Umbilical hernia without obstruction or gangrene; F32.9 Major depressive disorder, single episode, unspecified; J45.909 Unspecified asthma, uncomplicated; K43.9 Ventral hernia without obstruction or gangrene; K21.9 Gastro-esophageal reflux disease without esophagitis; J44.9 Chronic obstructive pulmonary disease, unspecified; E03.9 Hypothyroidism, unspecified; Z79.84 Long term (current) use of oral hypoglycemic drugs; Z82.49 Family history of ischemic heart disease and other diseases of the circulatory system; Z87.891 Personal history of nicotine dependence
CPT/HCPCS: 74177; 80053; 80061; 81001; 82550; 82948; 83690; 84439; 84443; 84484; 85025; 85610; 85730; 93005; 96374; 96375; J1650; J1815; J2270; J2405; J7030; Q9967

== ENCOUNTER 2017-05-04 14:55 | Emergency (ER) | payer OTHER ==
[~2017-05-04] VITALS: Ht 165.1 cm; Wt 96.4 kg
[~2017-05-04 14:55] MED LIST changes: -ALBU8I INH; +ESCI20TA PO; +FENO145T2 PO; -IBUP600 PO; -IMIT25TA PO; +LEVO.05 PO; -LEXA10TA PO; -LORTA5 PO; -METF-324 PO; +METF-382 PO; +PIOG15TA5 PO; -TRAM50 PO; +VENTAER INH
--- NOTE | 2017-05-04 15:07 | PD ---
HPI Chief Complaint: abdominal pain Time Seen by Provider: 15:06 Travel History International Travel<30 days: No Contact w/Intl Traveler<30days: No Traveled to known affect area: No History of Present Illness HPI 36-year-old female came to the emergency room with history of epigastric and left-sided abdominal pain that has been there for past 2 days. Patient says it' s been getting worse. She has been having diarrhea as well. There has been some nausea but no vomiting. No history of fever or chills. She has had cholecystectomy done in the past. No dysuria or hematuria. Pain is paroxysmal in nature with no aggravating or relieving factors identified. PFSH Past Medical History Narrative Medical List of her past medical, surgical, social and family history was reviewed from the nursing note. Asthma: Yes Blood Disorders: No Anxiety: Yes Depression: Yes Cancer: No Cardiovascular Problems: Yes (RAPID HEART RATE; EVAL BY MINER ASSISTANT - WN) Chemotherapy: No Diabetes: Yes Diminished Hearing: No Endocrine: Yes Gastrointestinal Disorders: Yes (OCCAS ACID REFLUX ) Genitourinary: No Hepatitis: No Hiatal Hernia: No Hypertension: No Immune Disorder: No Musculoskeletal: No Neurologic: No Psychiatric: No Reproductive: Yes (IUD/ENDOMETRIOSIS/PELVIC PAIN/HEAVY MENSTRUATION) Respiratory: Yes (ASTHMA) Radiation Therapy: No Sickle Cell Disease: No Thyroid Disease: Yes : 2 Para: 2 Tubal Ligation: Yes (1999) Past Surgical History Abdominal Surgery: Yes (gallbladder mesh removal and hernia repair) AICD: No Arteriovenous Shunt: No Body Medical Devices: NONE Cardiac Surgery: No Cholecystectomy: Yes Ear Surgery: No Endocrine Surgery: No Eye Surgery: No Genitourinary Surgery: No Gynecologic Surgery: Yes (hysterctomy) Hysterectomy: Yes Insulin Pump: No Joint Replacement: No Oral Surgery: No Pacemaker: No Thoracic Surgery: No Other Surgery: Yes (HERNIA REPAIR) Social History Alcohol Use: Yes (occ) Tobacco Use: No (quit 2 years ago) Substance Use: No Allergies-Medications (Allergen,Severity, Reaction): Coded Allergies: No Known Allergies (Unverified , 05/04/17) Comments No known drug allergies Reported Meds & Prescriptions Reported Meds & Active Scripts Active Lortab (Hydrocodone-Acetaminophen) 7.5-325 Mg Tab 1 Tab PO Q4H PRN Zofran Odt (Ondansetron Odt) 4 Mg Tab 4 Mg SL Q6HR PRN Protonix (Pantoprazole Sodium) 40 Mg Tab 40 Mg PO DAILY Synthroid (Levothyroxine Sodium) 50 Mcg Tab 75 Mcg PO DAILY@06 Reported Ventolin Hfa 18 GM Inh (Albuterol Sulfate) 90 Mcg/Act Aer 2 Puff INH Q4-6H PRN Advair Diskus Inh (Fluticasone-Salmeterol Inh) 250-50 Mcg/Blist Aer 1 Puff INH BID Rinse mouth after use. Escitalopram (Escitalopram Oxalate) 20 Mg Tab 20 Mg PO DAILY Metformin ER (Metformin HCl) 1,000 Mg Adrián 1,000 Mg PO DAILY With evening meal Narrative Medication List of her home medications reviewed from the nursing note. Review of Systems Except as stated in HPI: all other systems reviewed are Neg Physical Exam Narrative GENERAL: Awake, alert, moderate distress, obese SKIN: Focused skin assessment warm/dry. HEAD: Atraumatic. Normocephalic. EYES: Pupils equal and round. No scleral icterus. No injection or drainage. ENT: No nasal bleeding or discharge. Mucous membranes pink and moist. NECK: Trachea midline. No JVD. CARDIOVASCULAR: Regular rate and rhythm. No murmur appreciated. RESPIRATORY: No accessory muscle use. Clear to auscultation. Breath sounds equal bilaterally. GASTROINTESTINAL: Abdomen soft, epigastric tenderness, nondistended. Hepatic and splenic margins not palpable. MUSCULOSKELETAL: No obvious deformities. No clubbing. No cyanosis. No edema. NEUROLOGICAL: Awake and alert. No obvious cranial nerve deficits. Motor grossly within normal limits. Normal speech. PSYCHIATRIC: Appropriate mood and affect; insight and judgment normal. Data Data Last Documented VS Vital Signs Date Time Temp Pulse Resp B/P (MAP) Pulse Ox O2 Delivery O2 Flow Rate FiO2 05/04/17 17:47 80 16 116/69 (85) 97 05/04/17 16:05 Room Air 05/04/17 15:08 97.8 Orders Orders Complete Blood Count With Diff (05/04/17 15:17) Comprehensive Metabolic Panel (05/04/17 15:17) Lipase (05/04/17 15:17) Urinalysis - C+S If Indicated (05/04/17 15:17) Ct Abd/Pel W/O Iv Contrast (05/04/17 15:17) Iv Access Insert/Monitor (05/04/17 15:17) Ecg Monitoring (05/04/17 15:17) Oximetry (05/04/17 15:17) Ondansetron Inj (Zofran Inj) (05/04/17 15:30) Sodium Chlor 0.9% 1000 Ml Inj (Ns 1000 M (05/04/17 15:17) Sodium Chloride 0.9% Flush (Ns Flush) (05/04/17 15:30) Ketorolac Inj (Toradol Inj) (05/04/17 15:30) Ed Urine Pregnancytest Poc (05/04/17 15:17) Prochlorperazine Inj (Compazine Inj) (05/04/17 17:00) Hydromorphone Pf Inj (Dilaudid Pf Inj) (05/04/17 17:00) Pantoprazole Inj (Protonix Inj) (05/04/17 17:00) Labs Laboratory Tests Test 05/04/17 15:25 05/04/17 15:28 Urine Color YELLOW Urine Turbidity CLEAR Urine pH 6.0 Urine Specific [place] 1.035 Urine Protein NEG mg/dL Urine Glucose (UA) 1000 OR GREATER mg/dL Urine Ketones TRACE mg/dL Urine Occult Blood NEG Urine Nitrite NEG Urine Bilirubin NEG Urine Leukocyte Esterase NEG Urine WBC 0-2 /hpf Urine Squamous Epithelial Cells 0-5 /hpf Microscopic Urinalysis Comment CULT NOT INDICATED White Blood Count 6.4 TH/MM3 Red Blood Count 4.90 MIL/MM3 Hemoglobin 13.2 GM/DL Hematocrit 39.1 % Mean Corpuscular Volume 79.8 FL Mean Corpuscular Hemoglobin 26.9 PG Mean Corpuscular Hemoglobin Concent 33.7 % Red Cell Distribution Width 14.2 % Platelet Count 248 TH/MM3 Mean Platelet Volume 8.3 FL Neutrophils (%) (Auto) 59.6 % Lymphocytes (%) (Auto) 32.4 % Monocytes (%) (Auto) 5.3 % Eosinophils (%) (Auto) 2.1 % Basophils (%) (Auto) 0.6 % Neutrophils # (Auto) 3.9 TH/MM3 Lymphocytes # (Auto) 2.1 TH/MM3 Monocytes # (Auto) 0.3 TH/MM3 Eosinophils # (Auto) 0.1 TH/MM3 Basophils # (Auto) 0.0 TH/MM3 CBC Comment DIFF FINAL Differential Comment Blood Urea Nitrogen 4 MG/DL Creatinine 0.75 MG/DL Random Glucose 295 MG/DL Total Protein 7.6 GM/DL Albumin 3.4 GM/DL Calcium Level 8.8 MG/DL Alkaline Phosphatase 77 U/L Aspartate Amino Transf (AST/SGOT) 59 U/L Alanine Aminotransferase (ALT/SGPT) 100 U/L Total Bilirubin 0.4 MG/DL Sodium Level 135 MEQ/L Potassium Level 3.3 MEQ/L Chloride Level 100 MEQ/L Carbon Dioxide Level 23.4 MEQ/L Anion Gap 12 MEQ/L Estimat Glomerular Filtration Rate 87 ML/MIN Lipase 199 U/L [facility] Medical Decision Making Medical Screen Exam Complete: Yes Emergency Medical Condition: Yes Medical Record Reviewed: Yes Differential Diagnosis Acute pancreatitis, acute gastritis, acute colitis Narrative Course 3:42 PM waiting for the blood test results and the CAT scan to be done and resulted. Patient was given IV fluid bolus, Zofran and Toradol. Patient will be signed over to the oncoming ER physician. Procedures EKG Prior to Arrival: No Scripts Hydrocodone-Acetaminophen (Lortab) 7.5-325 Mg Tab 1 TAB PO Q4H Y for PAIN, #20 TAB 0 Refills Prov: Kvng Hathaway MD 05/04/17 Ondansetron Odt (Zofran Odt) 4 Mg Tab 4 MG SL Q6HR Y for Nausea/Vomiting, #10 TAB 0 Refills Prov: Kvng Hathaway MD 05/04/17 Pantoprazole (Protonix) 40 Mg Tab 40 MG PO DAILY for Reflux, #15 TAB 0 Refills Prov: Kvng Hathaway MD 05/04/17 Radha Lopez MD May 04, 2017 15:07
[2017-05-04 15:08] VITALS: BP 159/94; PULSE 97; RESP 18; TEMP 97.8; O2SAT 98
[2017-05-04] MEDS ORDERED: SODIUM CHLOR 0.9% 1000 ML INJ 1,000 ML IV SCH (15:17)
[2017-05-04 15:29] VITALS: O2SAT 98
[2017-05-04] MEDS ORDERED: ONDANSETRON HCL 4 MG/2 ML VIAL IVP ONE (15:30)
[2017-05-04] MEDS ORDERED: SODIUM CHLORIDE 0.9% FLUSH 10 ML FLUSH IV FLUSH PRN (15:30)
[2017-05-04] MEDS ORDERED: KETOROLAC TROMETHAMINE 30 MG/ML (IVP) VIAL IVP ONE (15:30)
[2017-05-04 15:38] LABS: AUTOMATED NEUTROPHIL # 3.9 TH/MM3 (1.8-7.7); BASOPHIL % 0.6 % (0.0-2.0); EOSINOPHIL # 0.1 TH/MM3 (0-0.4); EOSINOPHIL % 2.1 % (0.0-4.0); HEMATOCRIT 39.1 % (35.0-46.0); HEMO FLAGS DIFF FINAL; LYMPH % 32.4 % (9.0-44.0); LYMPHOCYTE # 2.1 TH/MM3 (1.0-4.8); MEAN CELL VOLUME 79.8 FL (80.0-100.0); MEAN CORPUSCULAR HEMOGLOBIN 26.9 PG (27.0-34.0); MEAN CORPUSCULAR HGB CONC 33.7 % (32.0-36.0); MONO % 5.3 % (0.0-8.0); NEUT % 59.6 % (16.0-70.0); PLATELET COUNT 248 TH/MM3 (150-450); RED CELL DISTRIBUTION WIDTH 14.2 % (11.6-17.2); WHITE BLOOD COUNT 6.4 TH/MM3 (4.0-11.0)
[2017-05-04 15:45] LABS: BLOOD, URINE NEG (NEG); GLUCOSE,URINE 1000 OR GREATER mg/dL (NEG); KETONE, URINE TRACE mg/dL (NEG); NITRITE,URINE NEG (NEG)
--- NOTE | 2017-05-04 15:46 | RADRPT ---
EXAM DATE/TIME: 05/04/2017 15:28 [place] COMPARISON: No previous studies available for comparison. INDICATIONS : Abdominal pain with nausea, vomiting, diarrhea. ORAL CONTRAST: No oral contrast ingested. RADIATION DOSE: 24.12 CTDIvol (mGy) MEDICAL HISTORY : Diabetes mellitus type 2. SURGICAL HISTORY : Cholecystectomy. Hysterectomy.Hernia mesh. ENCOUNTER: Initial ACUITY: 2 days PAIN SCALE: 7/10 LOCATION: Left abdomen TECHNIQUE: Volumetric scanning of the abdomen and pelvis was performed. Using automated exposure control and ad justment of the mA and/or kV according to patient size, radiation dose was kept as low as reasonably achievable to obtain optimal diagnostic quality images. DICOM format image data is available electro nically for review and comparison. FINDINGS: LOWER LUNGS: The visualized lower lungs are clear. LIVER: Mild fatty replacement. There is no ductal dilatation. Gallbladder surgically absent. SPLEEN: Normal size without lesion. PANCREAS: Within normal limits. KIDNEYS: Normal in size and shape. There is no mass, stone, or hydronephrosis. ADRENAL GLANDS: Within normal limits. VASCULAR: There is no aortic aneurysm. BOWEL/MESENTERY: The stomach, small bowel, and colon demonstrate no acute abnormality. There is no free intraperitone al air or fluid. ABDOMINAL WALL: Within normal limits. RETROPERITONEUM: There is no lymphadenopathy. BLADDER: No wall thickening or mass. REPRODUCTIVE: Tubal ligation INGUINAL: There is no lymphadenopathy or hernia. MUSCULOSKELETAL: Within normal limits for patient age. CONCLUSION: 1. Mild fatty replacement the liver 2. No etiology for the abdominal pain. Tigre Ruiz MD FACR on May 04, 2017 at 15:42 Board Certified Radiologist. This report was verified electronically.
[2017-05-04 15:57] LABS: CHLORIDE 100 MEQ/L (98-107); POTASSIUM 3.3 MEQ/L (3.5-5.1); SODIUM (NA) 135 MEQ/L (136-145)
[2017-05-04 15:59] LABS: COMMENT (UR) CULT NOT INDICATED; CULTURE IF INDICATED CULT NOT INDICATED; SQUAMOUS EPITHELIAL CELL URINE 0-5 /hpf (0-5); URINE COLOR YELLOW (YELLW/STRAW); WBC, URINE 0-2 /hpf (0-5)
[2017-05-04 16:04] LABS: ANION GAP 12 MEQ/L (5-15); BICARBONATE 23.4 MEQ/L (21.0-32.0); BLOOD UREA NITROGEN 4 MG/DL (7-18)
[2017-05-04 16:05] VITALS: BP 137/82; PULSE 82; RESP 18; O2SAT 98
[2017-05-04 16:30] LABS: ALKALINE PHOSPHATASE 77 U/L (45-117); ALT (GPT) 100 U/L (10-53); AST (GOT) 59 U/L (15-37); GLOMERULAR FILTRATION RATE 87 ML/MIN (>89)
[2017-05-04 16:31] LABS: TOTAL BILIRUBIN ADULT 0.4 MG/DL (0.2-1.0)
[2017-05-04] MEDS ORDERED: HYDR-3534 PO (16:52)
[2017-05-04] MEDS ORDERED: ZOFR4TAB3 SL (16:52)
[2017-05-04] MEDS ORDERED: PROT40TA PO (16:52)
--- NOTE | 2017-05-04 16:53 | PD ---
Physical Exam Date Seen by Provider: May 04, 2017 Time Seen by Provider: 16:49 Narrative This 36-year-old female is complaining of epigastric discomfort and burning. Symptoms of a going on. 4 days ago worse today. His been having for several days. She has a history of diabetes and is not been very well-controlled. She was seen by Dr. Torres who ordered lab work and Toradol for pain. Patient reports minimal relief of the pain. Her lab work is unremarkable and a CT scan does not reveal an etiology of the pain. She is describing an epigastric burning pain which I suspect is most likely related to gastritis. I will prescribe Protonix, Zofran and a few Lortab for outpatient use. She is to follow-up with her own medical doctor Data Data Last Documented VS Vital Signs Date Time Temp Pulse Resp B/P (MAP) Pulse Ox O2 Delivery O2 Flow Rate FiO2 05/04/17 15:29 98 Room Air 05/04/17 15:08 97.8 97 18 159/94 (115) Orders Orders Complete Blood Count With Diff (05/04/17 15:17) Comprehensive Metabolic Panel (05/04/17 15:17) Lipase (05/04/17 15:17) Urinalysis - C+S If Indicated (05/04/17 15:17) Ct Abd/Pel W/O Iv Contrast (05/04/17 15:17) Iv Access Insert/Monitor (05/04/17 15:17) Ecg Monitoring (05/04/17 15:17) Oximetry (05/04/17 15:17) Ondansetron Inj (Zofran Inj) (05/04/17 15:30) Sodium Chlor 0.9% 1000 Ml Inj (Ns 1000 M (05/04/17 15:17) Sodium Chloride 0.9% Flush (Ns Flush) (05/04/17 15:30) Ketorolac Inj (Toradol Inj) (05/04/17 15:30) Ed Urine Pregnancytest Poc (05/04/17 15:17) Prochlorperazine Inj (Compazine Inj) (05/04/17 17:00) Hydromorphone Pf Inj (Dilaudid Pf Inj) (05/04/17 17:00) Pantoprazole Inj (Protonix Inj) (9/13/17 17:00) Labs Laboratory Tests Test 05/04/17 15:25 05/04/17 15:28 Urine Color YELLOW Urine Turbidity CLEAR Urine pH 6.0 Urine Specific [place] 1.035 Urine Protein NEG mg/dL Urine Glucose (UA) 1000 OR GREATER mg/dL Urine Ketones TRACE mg/dL Urine Occult Blood NEG Urine Nitrite NEG Urine Bilirubin NEG Urine Leukocyte Esterase NEG Urine WBC 0-2 /hpf Urine Squamous Epithelial Cells 0-5 /hpf Microscopic Urinalysis Comment CULT NOT INDICATED White Blood Count 6.4 TH/MM3 Red Blood Count 4.90 MIL/MM3 Hemoglobin 13.2 GM/DL Hematocrit 39.1 % Mean Corpuscular Volume 79.8 FL Mean Corpuscular Hemoglobin 26.9 PG Mean Corpuscular Hemoglobin Concent 33.7 % Red Cell Distribution Width 14.2 % Platelet Count 248 TH/MM3 Mean Platelet Volume 8.3 FL Neutrophils (%) (Auto) 59.6 % Lymphocytes (%) (Auto) 32.4 % Monocytes (%) (Auto) 5.3 % Eosinophils (%) (Auto) 2.1 % Basophils (%) (Auto) 0.6 % Neutrophils # (Auto) 3.9 TH/MM3 Lymphocytes # (Auto) 2.1 TH/MM3 Monocytes # (Auto) 0.3 TH/MM3 Eosinophils # (Auto) 0.1 TH/MM3 Basophils # (Auto) 0.0 TH/MM3 CBC Comment DIFF FINAL Differential Comment Blood Urea Nitrogen 4 MG/DL Creatinine 0.75 MG/DL Random Glucose 295 MG/DL Total Protein 7.6 GM/DL Albumin 3.4 GM/DL Calcium Level 8.8 MG/DL Alkaline Phosphatase 77 U/L Aspartate Amino Transf (AST/SGOT) 59 U/L Alanine Aminotransferase (ALT/SGPT) 100 U/L Total Bilirubin 0.4 MG/DL Sodium Level 135 MEQ/L Potassium Level 3.3 MEQ/L Chloride Level 100 MEQ/L Carbon Dioxide Level 23.4 MEQ/L Anion Gap 12 MEQ/L Estimat Glomerular Filtration Rate 87 ML/MIN Lipase 199 U/L [facility] Medical Record Reviewed: No Supervised Visit with CADY: No Differential Diagnosis Differential includes gastritis, gastroenteritis, pancreatitis Narrative Course Workup is essentially negative. Impression is gastritis Diagnosis Primary Impression: Gastritis Qualified Codes: K29.70 - Gastritis, unspecified, without bleeding Scripts Hydrocodone-Acetaminophen (Lortab) 7.5-325 Mg Tab 1 TAB PO Q4H Y for PAIN, #20 TAB 0 Refills Prov: Kvng Hathaway MD 05/04/17 Ondansetron Odt (Zofran Odt) 4 Mg Tab 4 MG SL Q6HR Y for Nausea/Vomiting, #10 TAB 0 Refills Prov: Kvng Hathaway MD 05/04/17 Pantoprazole (Protonix) 40 Mg Tab 40 MG PO DAILY for Reflux, #15 TAB 0 Refills Prov: Kvng Hathaway MD 05/04/17 Disposition: 01 DISCHARGE HOME Condition: Stable Kvng Hathaway MD May 04, 2017 16:53
[2017-05-04] MEDS ORDERED: HYDROmorphone HCL PF 1 MG/ML VIAL IV PUSH ONE (17:00)
[2017-05-04] MEDS ORDERED: PROCHLORPERAZINE INJ 10 MG/2 ML VIAL IV PUSH ONE (17:00)
[2017-05-04] MEDS ORDERED: PANTOPRAZOLE SODIUM 40 MG VIAL IV PUSH ONE (17:00)
[2017-05-04 17:27] VITALS: RESP 16
[2017-05-04 17:47] VITALS: BP 116/69
== END 2017-05-04 17:48 | disposition home or self-care (01) ==
LOC: PHED 14:55
DX: K29.70 Gastritis, unspecified, without bleeding (principal); R19.7 Diarrhea, unspecified; E11.9 Type 2 diabetes mellitus without complications; E07.9 Disorder of thyroid, unspecified; Z79.84 Long term (current) use of oral hypoglycemic drugs; Z87.09 Personal history of other diseases of the respiratory system; Z86.59 Personal history of other mental and behavioral disorders; Z86.79 Personal history of other diseases of the circulatory system; Z87.19 Personal history of other diseases of the digestive system; Z87.42 Personal history of other diseases of the female genital tract
CPT/HCPCS: 74176; 80053; 81001; 83690; 85025; 96374; 96375; 99285; C9113; J0780; J1170; J1885; J2405; J7030

== ENCOUNTER 2017-06-09 10:01 | Emergency (ER) | payer OTHER ==
[~2017-06-09] VITALS: Ht 165.1 cm; Wt 95.0 kg
[~2017-06-09 10:01] MED LIST changes: -FENO145T2 PO; +HYDR-3534 PO; -PIOG15TA5 PO; +PROT40TA PO; +ZOFR4TAB3 SL
[2017-06-09 10:05] VITALS: BP 126/73; PULSE 87; RESP 16; TEMP 97.5; O2SAT 97
[2017-06-09] MEDS ORDERED: LANTUS2P SQ (10:37)
--- NOTE | 2017-06-09 10:57 | PD ---
HPI Chief Complaint: Back/ Neck Pain or Injury Time Seen by Provider: 10:34 Travel History International Travel<30 days: No Contact w/Intl Traveler<30days: No Traveled to known affect area: No History of Present Illness HPI The patient is a 36-year-old female who presents to the emergency department for low back pain of 2 weeks' duration. The patient states her pain started 2 weeks ago, is located over the right lower back and right gluteal area , radiates down the right leg to the right mid tibia/fibula and occasionally into the right groin. The pain is worse with certain positions such as standing , certain movements, and alleviated by lying on her left side with her legs flexed at the hips and knees. She denies any acute numbness or tingling to the right lower extremity but does note at times very right lower leg wants to " give out ". She also notes a few episodes of small urinary incontinence after urinating, but denies any constant urinary incontinence or large amounts of urinary continence. She denies any constipation. She denies any history of herniated disc. The patient denies any assisted fever, chills, sweats, or dysuria. The patient is a recently diagnosed diabetic and was started on insulin, she is increasing insulin daily based on blood sugars which she is monitoring. PFSH Past Medical History Asthma: Yes Blood Disorders: No Anxiety: Yes Depression: Yes Cancer: No Cardiovascular Problems: Yes (RAPID HEART RATE; EVAL BY COMPUGRAPH OPERATOR - [facility]) Chemotherapy: No Diabetes: Yes Patient Takes Glucophage: Yes Diminished Hearing: No Endocrine: Yes Gastrointestinal Disorders: Yes (OCCAS ACID REFLUX ) Genitourinary: No Hepatitis: No Hiatal Hernia: No Heparin Induced Thrombocytopen: No Hypertension: No Immune Disorder: No Implanted Vascular Access Dvce: No Medical other: No Musculoskeletal: No Neurologic: No Psychiatric: No Reproductive: Yes (IUD/ENDOMETRIOSIS/PELVIC PAIN/HEAVY MENSTRUATION) Respiratory: Yes (ASTHMA) Radiation Therapy: No Sickle Cell Disease: No Thyroid Disease: Yes Tetanus Vaccination: Unknown ?: Not : 2 Para: 2 Tubal Ligation: Yes (1999) Past Surgical History Abdominal Surgery: Yes (gallbladder mesh removal and hernia repair) AICD: No Arteriovenous Shunt: No Body Medical Devices: NONE Cardiac Surgery: No Cholecystectomy: Yes Ear Surgery: No Endocrine Surgery: No Eye Surgery: No Genitourinary Surgery: No Gynecologic Surgery: Yes (hysterctomy) Hysterectomy: Yes Insulin Pump: No Joint Replacement: No Neurologic Surgery: No Oral Surgery: No Pacemaker: No Thoracic Surgery: No Other Surgery: Yes (HERNIA REPAIR) Social History Alcohol Use: Yes (occ) Tobacco Use: No (quit 2 years ago) Substance Use: No Allergies-Medications (Allergen,Severity, Reaction): Coded Allergies: No Known Allergies (Unverified , 06/09/17) Reported Meds & Prescriptions Reported Meds & Active Scripts Active Lortab (Hydrocodone-Acetaminophen) 7.5-325 Mg Tab 1 Tab PO Q4H PRN Zofran Odt (Ondansetron Odt) 4 Mg Tab 4 Mg SL Q6HR PRN Protonix (Pantoprazole Sodium) 40 Mg Tab 40 Mg PO DAILY Synthroid (Levothyroxine Sodium) 50 Mcg Tab 75 Mcg PO DAILY@06 Reported Lantus Inj (Insulin Glargine) 1,000 Unit/10 Ml Vial 10 Units SQ HS Ventolin Hfa 18 GM Inh (Albuterol Sulfate) 90 Mcg/Act Aer 2 Puff INH Q4-6H PRN Advair Diskus Inh (Fluticasone-Salmeterol Inh) 250-50 Mcg/Blist Aer 1 Puff INH BID Rinse mouth after use. Escitalopram (Escitalopram Oxalate) 20 Mg Tab 20 Mg PO DAILY Metformin ER (Metformin HCl) 1,000 Mg Adrián 1,000 Mg PO DAILY With evening meal Review of Systems Except as stated in HPI: all other systems reviewed are Neg Gastrointestinal: No: Nausea, Vomiting, Abdominal Pain Genitourinary: Positive: Incontinence (small occasional urinary incontinence), No: Urgency, Frequency, Dysuria, Hematuria Musculoskeletal: Positive: Pain, No: Limited ROM, Weakness Neurologic: No: Paresthesia, Sensory Disturbance Physical Exam Narrative GENERAL: Awake, alert, pleasant 36-year-old female who appears her stated age and is in no acute respiratory distress. SKIN: Focused skin assessment warm/dry. HEAD: Atraumatic. Normocephalic. Back: No tenderness over the midline thoracic or lumbar vertebrae. No tenderness of the sacroiliac. Tenderness over the right gluteal area and the area of the sciatic nerve. MUSCULOSKELETAL: Strength with plantar flexion and dorsi flexion was 5 out of 5. Strength with flexion of the right great toe was 4+/5. Flexion of the right hip was 5/5. Positive straight leg on the right at 30. Strength with abduction/adduction was 5/5. Positive right dorsalis pedal pulse. NEUROLOGICAL: Awake and alert. No obvious cranial nerve deficits. Motor grossly within normal limits. Normal speech. Sensation is intact of the medial , lateral, dorsal aspect of the right foot. PSYCHIATRIC: Appropriate mood and affect; insight and judgment normal. Data Data Last Documented VS Vital Signs Date Time Temp Pulse Resp B/P (MAP) Pulse Ox O2 Delivery O2 Flow Rate FiO2 06/09/17 10:05 97.5 87 16 126/73 (90) 97 Orders Orders Ketorolac Inj (Toradol Inj) (06/09/17 11:00) Orphenadrine Inj (Norflex Inj) (06/09/17 11:00) [facility] Medical Decision Making Medical Screen Exam Complete: Yes Emergency Medical Condition: Yes Medical Record Reviewed: Yes Differential Diagnosis Differential diagnosis includes herniated disc, spinal stenosis, sciatica, back pain with radiculopathy, cauda equina, psoas abscess, epidural abscess. Narrative Course The patient's physical examination is consistent with back pain with radiculopathy, could be stenosis versus sciatica. The patient has no true incontinence, has no weakness, is neurologically intact. Positive straight leg on the right at 30. The patient was given an injection of Norflex and Toradol. As the patient is a recently diagnosed diabetic and they are currently titrating insulin, I will avoid a Medrol Dosepak and Decadron. The patient is advised to follow-up with her primary physician as she may need physical therapy if symptoms persist. The patient is stable for outpatient follow-up. Diagnosis Primary Impression: Back pain with right-sided radiculopathy Patient Instructions: General Instructions Additional Instructions: Medications as directed. Stretching exercises. Follow-up with your primary physician, you may benefit from physical therapy as an outpatient if symptoms persist. Med/Other Pt SpecificInfo: Prescription(s) given Scripts Hydrocodone-Acetaminophen ([place]) 5-325 mg Tab 1 TAB PO Q6H Y for PAIN, #15 TAB 0 Refills Prov: Rajesh Gray MD 06/09/17 Cyclobenzaprine (Flexeril) 10 Mg Tab 10 MG PO TID for Muscle Spasm, #30 TAB 0 Refills Prov: Rajesh Gray MD 06/09/17 Ibuprofen (Ibuprofen) 600 Mg Tab 600 MG PO Q6H Y for Pain/Inflammation, #20 TAB 0 Refills Prov: Rajesh Gray MD 06/09/17 Disposition: 01 DISCHARGE HOME Condition: Stable Rajesh Gray MD Jun 09, 2017 10:57
[2017-06-09] MEDS ORDERED: IBUP-232 PO (11:00)
[2017-06-09] MEDS ORDERED: KETOROLAC TROMETHAMINE 60 MG/2 ML (IM) VIAL IM ONE (11:00)
[2017-06-09] MEDS ORDERED: CYCL1TAB29 PO (11:00)
[2017-06-09] MEDS ORDERED: ORPHENADRINE INJ 60 MG/2 ML AMP IM ONE (11:00)
[2017-06-09] MEDS ORDERED: NORC5TAB PO (11:00)
== END 2017-06-09 11:08 | disposition home or self-care (01) ==
LOC: PHED 10:01 → PHEFT 11:08
DX: M54.10 Radiculopathy, site unspecified (principal)
CPT/HCPCS: 96372; 99284; J1885; J2360

== ENCOUNTER → 2017-06-22 | Day surgery (SDC) | payer OTHER ==
[~2017-06-22] VITALS: Ht 165.1 cm; Wt 97.5 kg
[~2017-06-22] MED LIST changes: +*HYDROmorphone PF 1 MG VIAL PERIprocedural Use ONLY ONE; +*Lactated Ringer's INJ 1,000 ML ONE; +*MEPERIDINE 25 MG INJ VIAL PERIprocedural Use ONLY ONE; +ALBUAER3 INH; +CHLORHEXIDINE GLUCONATE 2 % 1 PACK (2 CLOTHS) TOPICAL PRN; +CYAN25005 PO; +CYCL10TA PO; +IBUP-232 PO; +INSULIN HUMAN REGULAR 1,000 UNITS/10 ML VIAL SQ PRN; +LACTATED RINGER'S 1000 ML IV PRN; +LANTUS2P SQ; +METHYLENE BLUE 10 MG/ML VIAL OTHER ONE; +METOPROLOL TARTRATE 25 MG TAB PO PRN; +MIDAZOLAM HCL 2 MG/2 ML VIAL ONE; +MORPHINE SULFATE 8 MG/ML INJ ONE; +NORC5TAB PO; +ONDANSETRON HCL 4 MG/2 ML VIAL IV PUSH ONE; +POVIDONE IODINE 5% (ANTISEPSIS KIT) 4 APPLICATIONS EACH NARE PRN; +PROMETHAZINE INJ 25 MG/ML VIAL ONE; +PROPOFOL 200 MG/20 ML AMP IV ONE; +ROCURONIUM INJ 50 MG/5 ML SYRINGE IV PUSH ONE; +SODIUM CHLORID 0.9% 500 ML IV PRN; +SUGAMMADEX SODIUM 200 MG/2 ML VIAL IV PUSH ONE; +TOPI200T7 PO; +ceFAZolin 2 GM PREMIX 50 ML IV SCH; +ceFAZolin 2 GM PREMIX 50 ML ONE; +fentaNYL CITRATE 250 MCG/5 ML AMP ONE; +oxyCODONE/ACETAMINOPHEN 5 MG/325 MG TAB ONE
[2017-06-22 13:01] VITALS: PULSE 97
--- NOTE | 2017-06-22 13:27 | PD.OP ---
Operative Report Date of Surgery: Jun 22, 2017 Preoperative Diagnosis: (1) Abdominal pain, RLQ (2) Right ovarian cyst Postoperative Diagnosis: (1) Pelvic peritoneal adhesions, female (2) Right ovarian cyst (3) Abdominal pain, RLQ Procedure: Laparoscopic right salpingo-oophorectomy Anesthesia: SANTOS Watkins Surgeon: Catherine Lofton Volunteer Services Manager(s): Prasanna Rico Surgeon: n/a Operation and Findings: Indications: This patient with previous hysterectomy was seen in the ER recently for acute severe RLQ pain. Right ovarian cyst was seen on CT and palpated on exam. Patient is prepared for bilateral salpingo-oophorectomy if required. Findings: The patient had dense and filmy adhesions involving both ovaries and tubes, adherent to bowel and pelvic sidewall. After extensive bilateral adhesiolysis, both ovaries were identified, with a cystic mass on the right, smaller than the 4.5 cm reported. Photos were taken. Procedure: The patient was laid supine on the operating room table. General anesthesia was induced and endotracheal tube placed. She was prepped supine. A 1 cm incision was cut through the umbilicus, and the abdomen was instilled with 3 liters of CO2 using a Veress needle. The 10 mm trocar was put through that incision. Then under direct visualization the 5 mm ports were placed in the right and left lower quadrants. Even with deep Trendelenberg the adnexa could not be seen until some sharp and blunt adhesiolysis. It then became evident that the adhesions were severe, so a suction-patient service rep was used to assist adhesiolysis, but much sharp dissection was required using buth the Harmonic ACS and scissors, On freeing the right ovary and tube with the help of a J retractor, the infundibulo-pelvic ligament was identified and transected using the harmonic device. The ureter was the identified on the right, and the patient was given IV methylene blue to see if any inadvertent injury was done to the bowel. The left ovary and fallopian tube was the freed up with adhesiolysis enough to see that there was no significant cystic structure there. The pelvis was irrigated clean and observed for hemostasis. The ports were then removed. The fascia was identified and grasped through the umbilical incision, the reapproximated with a 0-Vicryl suture. The skin edges at all three port sites were closed subcuticularly with 4-0 Monocryl and sealed with Dermabond. The patient was extubated and transferred to the recovery room in good condition. Sponge, needle and instrument counts were correct. Catherine Lofton MD Jun 22, 2017 13:27
[2017-06-22 15:00] VITALS: PULSE 92; TEMP 98.2
[2017-06-22 16:05] VITALS: BP 114/73; PULSE 82; RESP 14; O2SAT 96
== END | disposition home or self-care (01) ==
LOC: PHSDC 09:12
PROVIDERS: ATTEND Obstetrics & Gynecology
DX: N83.201 Unspecified ovarian cyst, right side (principal); N73.6 Female pelvic peritoneal adhesions (postinfective); R10.31 Right lower quadrant pain; E13.9 Other specified diabetes mellitus without complications; J44.9 Chronic obstructive pulmonary disease, unspecified; G47.30 Sleep apnea, unspecified; N39.46 Mixed incontinence; R74.8 Abnormal levels of other serum enzymes; N94.10 Unspecified dyspareunia
CPT/HCPCS: 00840; 58661; 82948; 88305; J0690; J1170; J2175; J2250; J2270; J2405; J2550; J3010; J7120

== ENCOUNTER 2017-07-02 16:48 | Emergency (ER) | payer OTHER ==
[~2017-07-02] VITALS: Ht 165.1 cm; Wt 95.3 kg
[~2017-07-02 16:48] MED LIST changes: -*HYDROmorphone PF 1 MG VIAL PERIprocedural Use ONLY ONE; -*Lactated Ringer's INJ 1,000 ML ONE; -*MEPERIDINE 25 MG INJ VIAL PERIprocedural Use ONLY ONE; -CHLORHEXIDINE GLUCONATE 2 % 1 PACK (2 CLOTHS) TOPICAL PRN; -INSULIN HUMAN REGULAR 1,000 UNITS/10 ML VIAL SQ PRN; -LACTATED RINGER'S 1000 ML IV PRN; -METHYLENE BLUE 10 MG/ML VIAL OTHER ONE; -METOPROLOL TARTRATE 25 MG TAB PO PRN; -MIDAZOLAM HCL 2 MG/2 ML VIAL ONE; -MORPHINE SULFATE 8 MG/ML INJ ONE; -NORC5TAB PO; -ONDANSETRON HCL 4 MG/2 ML VIAL IV PUSH ONE; -POVIDONE IODINE 5% (ANTISEPSIS KIT) 4 APPLICATIONS EACH NARE PRN; -PROMETHAZINE INJ 25 MG/ML VIAL ONE; -PROPOFOL 200 MG/20 ML AMP IV ONE; -PROT40TA PO; -ROCURONIUM INJ 50 MG/5 ML SYRINGE IV PUSH ONE; -SODIUM CHLORID 0.9% 500 ML IV PRN; -SUGAMMADEX SODIUM 200 MG/2 ML VIAL IV PUSH ONE; -VENTAER INH; -ceFAZolin 2 GM PREMIX 50 ML IV SCH; -ceFAZolin 2 GM PREMIX 50 ML ONE; -fentaNYL CITRATE 250 MCG/5 ML AMP ONE; -oxyCODONE/ACETAMINOPHEN 5 MG/325 MG TAB ONE
[2017-07-02 17:03] VITALS: BP 118/74; PULSE 92; RESP 16; TEMP 97.9; O2SAT 96
[2017-07-02 18:13] LABS: BLOOD, URINE NEG (NEG); GLUCOSE,URINE 1000 OR GREATER mg/dL (NEG); KETONE, URINE TRACE mg/dL (NEG); NITRITE,URINE NEG (NEG)
--- NOTE | 2017-07-02 18:15 | PD ---
HPI Chief Complaint: Abdominal Pain Time Seen by Provider: 18:15 Travel History International Travel<30 days: No Contact w/Intl Traveler<30days: No Traveled to known affect area: No History of Present Illness HPI 36-year-old female came to the emergency room with history of right lower quadrant abdominal pain that started yesterday. Patient is having some diarrhea. She feels extremely weak. She does not have much of an appetite. Patient had a right oophorectomy two and half weeks ago done by Dr. Lofton. As per the she was doing well up until 2 days ago when she started to get up and walk around a little bit and then this pain started. Patient seems uncomfortable. No history of fever or chills. Vital signs were stable. [facility] Past Medical History Narrative Medical List of her past medical, surgical, social and family history is reviewed from the nursing note. Asthma: Yes Blood Disorders: No Anxiety: Yes Depression: Yes Cancer: No Cardiovascular Problems: Yes (RAPID HEART RATE; EVAL BY MICROSTRATEGY DEVELOPER - [facility]) Chemotherapy: No Diabetes: Yes (type 2) Patient Takes Glucophage: Yes Diminished Hearing: No Endocrine: No Gastrointestinal Disorders: Yes (OCCAS ACID REFLUX ) Genitourinary: No Hepatitis: No Hiatal Hernia: No Heparin Induced Thrombocytopen: No Hypertension: No Immune Disorder: No Implanted Vascular Access Dvce: No Musculoskeletal: No Neurologic: No Psychiatric: Yes (DEPRESSION, ANXIETY) Reproductive: Yes (IUD/ENDOMETRIOSIS/PELVIC PAIN/HEAVY MENSTRUATION) Respiratory: Yes (asthma) Radiation Therapy: No Sickle Cell Disease: No Thyroid Disease: Yes Tetanus Vaccination: > 5 Years Influenza Vaccination: No ?: Not : 2 Para: 2 Tubal Ligation: Yes (1999) Past Surgical History Abdominal Surgery: Yes (gallbladder mesh removal and hernia repair) AICD: No Arteriovenous Shunt: No Body Medical Devices: NONE Cardiac Surgery: No Cholecystectomy: Yes Ear Surgery: No Endocrine Surgery: No Eye Surgery: No Genitourinary Surgery: No Gynecologic Surgery: Yes (hysterctomy, ovary/cyst removed) Hysterectomy: Yes Insulin Pump: No Joint Replacement: No Neurologic Surgery: No Oral Surgery: No Pacemaker: No Thoracic Surgery: No Other Surgery: Yes (HERNIA REPAIR) Social History Alcohol Use: Yes () Tobacco Use: No (quit 2 years ago) Substance Use: No Allergies-Medications (Allergen,Severity, Reaction): Coded Allergies: No Known Allergies (Unverified Allergy, Unknown, 07/02/17) Comments No known drug allergies. Reported Meds & Prescriptions Reported Meds & Active Scripts Active Flexeril (Cyclobenzaprine HCl) 10 Mg Tab 10 Mg PO TID Ibuprofen 600 Mg Tab 600 Mg PO Q6H PRN Zofran Odt (Ondansetron Odt) 4 Mg Tab 4 Mg SL Q6HR PRN Synthroid (Levothyroxine Sodium) 50 Mcg Tab 75 Mcg PO DAILY@06 Reported Topiramate 200 Mg Tab 200 Mg PO DAILY Vitamin B12 (Cyanocobalamin (Vitamin B-12)) 2,500 Mcg Tab.chew 50,000 Mcg PO WEEKLY Proair Hfa 8.5 GM Inh (Albuterol Sulfate) 90 Mcg/Act Aer 2 Puff INH Q4-6H PRN 108 mcg/actuation Lantus Inj (Insulin Glargine) 1,000 Unit/10 Ml Vial 22 Units SQ HS Advair Diskus Inh (Fluticasone-Salmeterol Inh) 250-50 Mcg/Blist Aer 1 Puff INH BID Rinse mouth after use. Escitalopram (Escitalopram Oxalate) 20 Mg Tab 20 Mg PO DAILY Metformin ER (Metformin HCl) 1,000 Mg Adrián 1,000 Mg PO DAILY With evening meal Narrative Medication List of her home medications reviewed from the nursing note. Review of Systems Except as stated in HPI: all other systems reviewed are Neg Gastrointestinal: Positive: Diarrhea, Abdominal Pain Physical Exam Narrative GENERAL: Awake, alert, obese, moderate distress SKIN: Focused skin assessment warm/dry. HEAD: Atraumatic. Normocephalic. EYES: Pupils equal and round. No scleral icterus. No injection or drainage. ENT: No nasal bleeding or discharge. Mucous membranes pink and moist. NECK: Trachea midline. No JVD. CARDIOVASCULAR: Regular rate and rhythm. No murmur appreciated. RESPIRATORY: No accessory muscle use. Clear to auscultation. Breath sounds equal bilaterally. GASTROINTESTINAL: Abdomen soft, non-tender, distended. Hepatic and splenic margins not palpable. MUSCULOSKELETAL: No obvious deformities. No clubbing. No cyanosis. No edema. NEUROLOGICAL: Awake and alert. No obvious cranial nerve deficits. Motor grossly within normal limits. Normal speech. PSYCHIATRIC: Appropriate mood and affect; insight and judgment normal. Data Data Last Documented VS Vital Signs Date Time Temp Pulse Resp B/P (MAP) Pulse Ox O2 Delivery O2 Flow Rate FiO2 07/02/17 20:19 70 18 110/60 (77) 97 07/02/17 19:11 Room Air 07/02/17 17:03 97.9 Orders Orders Urinalysis - C+S If Indicated (07/02/17 17:05) Ed Urine Pregnancytest Poc (07/02/17 17:05) Complete Blood Count With Diff (07/02/17 18:23) Comprehensive Metabolic Panel (07/02/17 18:23) Lipase (07/02/17 18:23) Ct Abd/Pel W/O Iv Contrast (07/02/17 18:23) Iv Access Insert/Monitor (07/02/17 18:23) Ecg Monitoring (07/02/17:23) Oximetry (07/02/17 18:23) Morphine Inj (Morphine Inj) (07/02/17 18:30) Ondansetron Inj (Zofran Inj) (07/02/17 18:30) Sodium Chloride 0.9% Flush (Ns Flush) (07/02/17 18:30) Sodium Chlor 0.9% 1000 Ml Inj (Ns 1000 M (07/02/17 18:30) Sodium Chlor 0.9% 1000 Ml Inj (Ns 1000 M (07/02/17 19:00) Potassium Chlor 10 Meq Premix (Kcl 10 Me (07/02/17 19:00) Morphine Inj (Morphine Inj) (07/02/17 19:15) Labs Laboratory Tests Test 07/02/17 18:08 07/02/17 18:30 Urine Color YELLOW Urine Turbidity CLEAR Urine pH 6.0 Urine Specific [place] GREATER THAN 1.035 Urine Protein NEG mg/dL Urine Glucose (UA) 1000 OR GREATER mg/dL Urine Ketones TRACE mg/dL Urine Occult Blood NEG Urine Nitrite NEG Urine Bilirubin NEG Urine Leukocyte Esterase NEG Urine RBC 0-2 /hpf Urine WBC 0-2 /hpf Urine Squamous Epithelial Cells 0-5 /hpf Urine Bacteria NONE /hpf Microscopic Urinalysis Comment CULT NOT INDICATED White Blood Count 7.7 TH/MM3 Red Blood Count 4.71 MIL/MM3 Hemoglobin 13.3 GM/DL Hematocrit 38.9 % Mean Corpuscular Volume 82.6 FL Mean Corpuscular Hemoglobin 28.2 PG Mean Corpuscular Hemoglobin Concent 34.2 % Red Cell Distribution Width 14.1 % Platelet Count 203 TH/MM3 Mean Platelet Volume 8.9 FL Neutrophils (%) (Auto) 59.3 % Lymphocytes (%) (Auto) 29.8 % Monocytes (%) (Auto) 5.3 % Eosinophils (%) (Auto) 5.1 % Basophils (%) (Auto) 0.5 % Neutrophils # (Auto) 4.6 TH/MM3 Lymphocytes # (Auto) 2.3 TH/MM3 Monocytes # (Auto) 0.4 TH/MM3 Eosinophils # (Auto) 0.4 TH/MM3 Basophils # (Auto) 0.0 TH/MM3 CBC Comment DIFF FINAL Differential Comment Blood Urea Nitrogen 6 MG/DL Creatinine 0.83 MG/DL Random Glucose 273 MG/DL Total Protein 7.1 GM/DL Albumin 3.2 GM/DL Calcium Level 8.7 MG/DL Alkaline Phosphatase 77 U/L Aspartate Amino Transf (AST/SGOT) 56 U/L Alanine Aminotransferase (ALT/SGPT) 91 U/L Total Bilirubin 0.3 MG/DL Sodium Level 133 MEQ/L Potassium Level 3.3 MEQ/L Chloride Level 100 MEQ/L Carbon Dioxide Level 24.6 MEQ/L Anion Gap 8 MEQ/L Estimat Glomerular Filtration Rate 77 ML/MIN Lipase 227 U/L MDM Medical Decision Making Medical Screen Exam Complete: Yes Emergency Medical Condition: Yes Medical Record Reviewed: Yes Differential Diagnosis Postoperative bleeding, intra-abdominal infection, postop pain Narrative Course 7:26 PM patient was medicated for pain. Blood test results of back and within acceptable limits except for potassium being slightly low low and that sugar is elevated. CT scan just shows postop changes along with fatty liver otherwise negative for anything acute. I discussed the test results with the patient and answered all their questions to the best of my ability. Patient will be discharged home. She will get 1 more dose of pain medication before leaving. Procedures EKG Prior to Arrival: No Diagnosis Primary Impression: Postoperative pain Additional Impressions: Dehydration Hyperglycemia Fatty liver Referrals: Primary Care Physician 2 days Additional Instructions: Take OTC and take clear liquid diet for the next 24-48 hours. Take Motrin/ ibuprofen/Advil for the pain. Follow-up with your surgeon on Tuesday by calling and making an appointment. Return to the ER if the condition worsens or any other new concerns. Med/Other Pt SpecificInfo: No Change to Meds Disposition: 01 DISCHARGE HOME Condition: Stable Radha Lopez MD Jul 02, 2017 18:15
[2017-07-02 18:18] LABS: COMMENT (UR) CULT NOT INDICATED; CULTURE IF INDICATED CULT NOT INDICATED; RBC, URINE 0-2 /hpf (0-3); SQUAMOUS EPITHELIAL CELL URINE 0-5 /hpf (0-5); URINE COLOR YELLOW (YELLW/STRAW); WBC, URINE 0-2 /hpf (0-5)
[2017-07-02] MEDS ORDERED: SODIUM CHLORIDE 0.9% FLUSH 10 ML FLUSH IV FLUSH PRN (18:30)
[2017-07-02] MEDS ORDERED: MORPHINE SULFATE 4 MG/ML INJ IV PUSH ONE ×2 (18:30→19:15)
[2017-07-02] MEDS ORDERED: SODIUM CHLOR 0.9% 1000 ML INJ 1,000 ML IV ONE ×2 (18:30→19:00)
[2017-07-02] MEDS ORDERED: ONDANSETRON HCL 4 MG/2 ML VIAL IVP ONE (18:30)
[2017-07-02 18:47] LABS: AUTOMATED NEUTROPHIL # 4.6 TH/MM3 (1.8-7.7); BASOPHIL % 0.5 % (0.0-2.0); CHLORIDE 100 MEQ/L (98-107); EOSINOPHIL # 0.4 TH/MM3 (0-0.4); EOSINOPHIL % 5.1 % (0.0-4.0); HEMATOCRIT 38.9 % (35.0-46.0); HEMO FLAGS DIFF FINAL; LYMPH % 29.8 % (9.0-44.0); LYMPHOCYTE # 2.3 TH/MM3 (1.0-4.8); MEAN CELL VOLUME 82.6 FL (80.0-100.0); MEAN CORPUSCULAR HEMOGLOBIN 28.2 PG (27.0-34.0); MEAN CORPUSCULAR HGB CONC 34.2 % (32.0-36.0); MONO % 5.3 % (0.0-8.0); NEUT % 59.3 % (16.0-70.0); PLATELET COUNT 203 TH/MM3 (150-450); POTASSIUM 3.3 MEQ/L (3.5-5.1); RED BLOOD COUNT 4.71 MIL/MM3 (4.00-5.30); RED CELL DISTRIBUTION WIDTH 14.1 % (11.6-17.2); SODIUM (NA) 133 MEQ/L (136-145); WHITE BLOOD COUNT 7.7 TH/MM3 (4.0-11.0)
[2017-07-02 18:51] LABS: ANION GAP 8 MEQ/L (5-15); BICARBONATE 24.6 MEQ/L (21.0-32.0); BLOOD UREA NITROGEN 6 MG/DL (7-18)
[2017-07-02 18:53] LABS: ALT (GPT) 91 U/L (10-53)
[2017-07-02 18:54] LABS: AST (GOT) 56 U/L (15-37); GLOMERULAR FILTRATION RATE 77 ML/MIN (>89)
[2017-07-02 18:55] LABS: TOTAL BILIRUBIN ADULT 0.3 MG/DL (0.2-1.0)
[2017-07-02 18:56] LABS: ALKALINE PHOSPHATASE 77 U/L (45-117)
--- NOTE | 2017-07-02 18:56 | RADRPT ---
EXAM DATE/TIME: 07/02/2017 18:36 [place] COMPARISON: CT ABDOMEN & PELVIS W/O CONTRAST, May 04, 2017, 15:28. INDICATIONS : Abdominal pain, nausea, vomiting. ORAL CONTRAST: No oral contrast ingested. RADIATION DOSE: 7.78 CTDIvol (mGy) MEDICAL HISTORY : Cardiovascular disease. Gastroesophageal reflux disease. Diabetes mellitus type 2.Endometriosis SURGICAL HISTORY : Cholecystectomy. Hysterectomy.Rt ovary 1 week ago, hernia repair. Tubal. ENCOUNTER: Initial ACUITY: 1 day PAIN SCALE: 8/10 LOCATION: Bilateral abdominal. TECHNIQUE: Volumetric scanning of the abdomen and pelvis was performed. Using automated exposure control and ad justment of the mA and/or kV according to patient size, radiation dose was kept as low as reasonably achievable to obtain optimal diagnostic quality images. DICOM format image data is available electro nically for review and comparison. FINDINGS: LOWER LUNGS: The visualized lower lungs are clear. LIVER: Homogeneous, but diffusely decreased density without lesion. There is no dilation of the biliary javier e. No calcified gallstones. SPLEEN: Normal size without lesion. PANCREAS: Within normal limits. KIDNEYS: Normal in size and shape. There is no mass, stone, or hydronephrosis. ADRENAL GLANDS: Within normal limits. VASCULAR: There is no aortic aneurysm. BOWEL/MESENTERY: The stomach, small bowel, and colon demonstrate no acute abnormality. There is no free intraperitone al air or fluid. Diverticular disease of the sigmoid without diverticulitis. ABDOMINAL WALL: Stable stranding in the deep subcutaneous tissues midline in the upper abdominal wall. RETROPERITONEUM: There is no lymphadenopathy. BLADDER: No wall thickening or mass. REPRODUCTIVE: Patient is status post hysterectomy. Surgical clips near the left ovary are characteristic of a prior tubal ligation. Right ovary is not visualized. INGUINAL: There is no lymphadenopathy or hernia. MUSCULOSKELETAL: Within normal limits for patient age. CONCLUSION: 1. Diffuse hepatic fatty infiltration. 2. Mild diverticular disease of the sigmoid without diverticulitis. 3. Postsurgical changes and findings of prior cholecystectomy and hysterectomy. Possible prior tubal ligation as well. 4. Stable stranding in the deep subcutaneous tissues midline in the upper abdomen. This may represent an area of prior surgical intervention. 5. No acute intraperitoneal or pelvic process to explain current clinical symptoms Cleve Manrique MD on July 02, 2017 at 18:49 Board Certified Radiologist. This report was verified electronically.
[2017-07-02] MEDS ORDERED: POTASSIUM CHLOR 10 MEQ PREMIX 100 ML IV ONE (19:00)
[2017-07-02 19:07] VITALS: O2SAT 97
[2017-07-02 19:11] VITALS: BP 105/61; PULSE 75; RESP 16; O2SAT 97
[2017-07-02 19:20] VITALS: RESP 16
[2017-07-02 20:19] VITALS: BP 110/60
== END 2017-07-02 21:14 | disposition home or self-care (01) ==
LOC: PHED 16:48
DX: G89.18 Other acute postprocedural pain (principal); E86.0 Dehydration; E11.65 Type 2 diabetes mellitus with hyperglycemia; K76.0 Fatty (change of) liver, not elsewhere classified; R19.7 Diarrhea, unspecified; R53.1 Weakness; Z98.890 Other specified postprocedural states; E07.9 Disorder of thyroid, unspecified; Z79.4 Long term (current) use of insulin; Z87.09 Personal history of other diseases of the respiratory system; Z86.59 Personal history of other mental and behavioral disorders; Z86.79 Personal history of other diseases of the circulatory system; Z87.19 Personal history of other diseases of the digestive system; Z87.42 Personal history of other diseases of the female genital tract
CPT/HCPCS: 74176; 80053; 81001; 83690; 85025; 96365; 96375; 99285; J2270; J2405; J3480; J7030

== ENCOUNTER 2017-09-23 18:15 | Emergency (ER) | payer OTHER ==
[~2017-09-23] VITALS: Ht 165.1 cm; Wt 94.7 kg
[~2017-09-23 18:15] MED LIST changes: -HYDR-3534 PO
[2017-09-23 18:35] VITALS: BP 134/65; PULSE 78; RESP 16; TEMP 98.3; O2SAT 96
[2017-09-23] MEDS ORDERED: KETOROLAC TROMETHAMINE 30 MG/ML (IVP) VIAL IV PUSH ONE (20:30)
[2017-09-23] MEDS ORDERED: diphenhydrAMINE HCL 50 MG/ML VIAL IV PUSH ONE (20:30)
[2017-09-23] MEDS ORDERED: SODIUM CHLOR 0.9% 1000 ML INJ 1,000 ML IV ONE (20:30)
[2017-09-23] MEDS ORDERED: PROCHLORPERAZINE INJ 10 MG/2 ML VIAL IV PUSH ONE (20:30)
--- NOTE | 2017-09-23 20:51 | PD ---
HPI Chief Complaint: Head Injury Time Seen by Provider: 19:41 Travel History International Travel<30 days: No Contact w/Intl Traveler<30days: No Traveled to known affect area: No History of Present Illness HPI Patient is a 36-year-old female who comes in complaining of headache with nausea. She says 2 days ago she fell and hit the back of her head on a dresser. She says since then, the pain in her head seems to be spreading and she started to feel nauseous. She has not vomited. She denies fever chills. She says that she used to get headaches, but after receiving Botox, they had lessened. She denies blurred vision. She denies numbness or tingling to her extremities. She tried taking Advil with minimal relief. Severity is mild. PFSH Past Medical History Hx Anticoagulant Therapy: No Asthma: Yes Blood Disorders: No Anxiety: Yes Depression: Yes Cancer: No Cardiovascular Problems: Yes (RAPID HEART RATE; EVAL BY [employer]AL [employer]ENSE [employer]ER - [facility]) Chemotherapy: No Diabetes: Yes Patient Takes Glucophage: Yes Diminished Hearing: No Endocrine: No Gastrointestinal Disorders: Yes (OCCAS ACID REFLUX ) Genitourinary: No Hepatitis: No Hiatal Hernia: No Heparin Induced Thrombocytopen: No Hypertension: No Immune Disorder: No Implanted Vascular Access Dvce: No Musculoskeletal: No Neurologic: No Psychiatric: Yes (DEPRESSION, ANXIETY) Reproductive: Yes (IUD/ENDOMETRIOSIS/PELVIC PAIN/HEAVY MENSTRUATION) Respiratory: Yes (asthma) Migraines: Yes Radiation Therapy: No Sickle Cell Disease: No Thyroid Disease: Yes Tetanus Vaccination: > 5 Years Influenza Vaccination: No ?: Not : 2 Para: 2 Tubal Ligation: Yes (1999) Past Surgical History Abdominal Surgery: Yes (gallbladder mesh removal and hernia repair) AICD: No Arteriovenous Shunt: No Body Medical Devices: NONE Cardiac Surgery: No Cholecystectomy: Yes Ear Surgery: No Endocrine Surgery: No Eye Surgery: No Genitourinary Surgery: No Gynecologic Surgery: Yes (hysterctomy, ovary/cyst removed) Hysterectomy: Yes Insulin Pump: No Joint Replacement: No Neurologic Surgery: No Oral Surgery: No Pacemaker: No Thoracic Surgery: No Other Surgery: Yes (HERNIA REPAIR) Social History Alcohol Use: Yes () Tobacco Use: No (QUIT 2014) Substance Use: No Allergies-Medications (Allergen,Severity, Reaction): Coded Allergies: No Known Allergies (Unverified Allergy, Unknown, 09/23/17) Reported Meds & Prescriptions Reported Meds & Active Scripts Active Zofran Odt (Ondansetron Odt) 4 Mg Tab 4 Mg SL Q6HR PRN Synthroid (Levothyroxine Sodium) 50 Mcg Tab 75 Mcg PO DAILY@06 Reported Topiramate 200 Mg Tab 200 Mg PO DAILY Vitamin B12 (Cyanocobalamin (Vitamin B-12)) 2,500 Mcg Tab.chew 50,000 Mcg PO WEEKLY Proair Hfa 8.5 GM Inh (Albuterol Sulfate) 90 Mcg/Act Aer 2 Puff INH Q4-6H PRN 108 mcg/actuation Lantus Inj (Insulin Glargine) 1,000 Unit/10 Ml Vial 24 Units SQ HS Advair Diskus Inh (Fluticasone-Salmeterol Inh) 250-50 Mcg/Blist Aer 1 Puff INH BID Rinse mouth after use. Escitalopram (Escitalopram Oxalate) 20 Mg Tab 20 Mg PO DAILY Metformin ER (Metformin HCl) 1,000 Mg Adrián 1,000 Mg PO DAILY With evening meal Review of Systems Except as stated in HPI: all other systems reviewed are Neg General / Constitutional: No: Fever, Chills Eyes: No: Blurred Vision HENT: Positive: Headaches, No: Lightheadedness Cardiovascular: No: Chest Pain or Discomfort Respiratory: No: Shortness of Breath Gastrointestinal: Positive: Nausea, No: Vomiting Genitourinary: No: Dysuria Musculoskeletal: No: Myalgias, Edema Skin: No Rash, No Change in Pigmentation Neurologic: No: Weakness, Dizziness, Syncope Physical Exam Narrative GENERAL: Awake and alert, in no acute distress. SKIN: Focused skin assessment warm/dry. No wounds. HEAD: Atraumatic. Normocephalic. EYES: Pupils equal and round. No scleral icterus. Extraocular movements intact. ENT: Mucous membranes pink and moist. NECK: Trachea midline. No JVD. No cervical spine tenderness. CARDIOVASCULAR: Regular rate and rhythm. No murmur appreciated. RESPIRATORY: No accessory muscle use. Clear to auscultation. Breath sounds equal bilaterally. GASTROINTESTINAL: Abdomen soft, non-tender, nondistended. MUSCULOSKELETAL: No obvious deformities. No clubbing. No cyanosis. No edema. NEUROLOGICAL: Awake and alert. No obvious cranial nerve deficits. Motor grossly within normal limits. Normal speech. PSYCHIATRIC: Appropriate mood and affect; insight and judgment normal. Data Data Last Documented VS Vital Signs Date Time Temp Pulse Resp B/P (MAP) Pulse Ox O2 Delivery O2 Flow Rate FiO2 09/23/17 22:55 09/23/17 22:48 80 16 97 Room Air 09/23/17 18:[address] Brain W/O Iv Contrast(Rout) (09/23/17 ) Ct Cerv Spine W/O Contrast (09/23/17 ) Ketorolac Inj (Toradol Inj) (09/23/17 20:30) Prochlorperazine Inj (Compazine Inj) (09/23/17 20:30) Diphenhydramine Inj (Benadryl Inj) (09/23/17 20:30) Sodium Chlor 0.9% 1000 Ml Inj (Ns 1000 M (09/23/17 20:30) Ed Discharge Order (09/23/17 22:34) MDM Medical Decision Making Medical Screen Exam Complete: Yes Emergency Medical Condition: Yes Medical Record Reviewed: Yes Differential Diagnosis Tension headache versus head injury versus migraine Narrative Course Patient is a 36-year-old female who comes in complaining of a headache after hitting her head 2 days ago. Exam shows no neurologic abnormalities. CT head and C-spine performed showing no acute abnormalities. Patient given Toradol, Compazine, Benadryl as well as IV fluids. She reports resolution of her symptoms. Last [address] 09/23/17 0000 Signed Impressions: Service Date/Time: Saturday, September 23, 2017 20:35 - CONCLUSION: No acute disease. Aniceto Humphreys MD Cervical Spine CT 09/23/17 0000 Signed Impressions: Service Date/Time: Saturday, September 23, 2017 20:35 - CONCLUSION: 1. No acute fracture or prevertebral soft tissue swelling. 2. Cervical spondylosis at C5- 6 and C6-7. 3. Straightening of the normal cervical lordosis. Aniceto Humphreys MD Patient advised to take ibuprofen or Tylenol as needed for headache. Advised follow-up with her doctor. Advised to return to the ED as needed for any worsening symptoms. Diagnosis Primary Impression: Headache Qualified Codes: R51 - Headache Patient Instructions: Acute Headache (ED), General Instructions, Head Injury ( ED) Additional Instructions: Take Tylenol or ibuprofen as needed for pain. Follow-up with your doctor. Return to the ED as needed for any worsening symptoms. Disposition: 01 DISCHARGE HOME Condition: Stable Lorraine Zhang MD Sep 23, 2017 20:51
--- NOTE | 2017-09-23 20:54 | RADRPT ---
EXAM DATE/TIME: 09/23/2017 20:35 [facility] COMPARISON: No previous studies available for comparison. INDICATIONS : Trauma. Fell and hit head 2 days ago. RADIATION DOSE: 63.15 CTDIvol (mGy) MEDICAL HISTORY : Diabetes mellitus type 2. SURGICAL HISTORY : Hysterectomy. Tubal ligation.Cholecystectomy. ENCOUNTER: Initial ACUITY: 2 days PAIN SCALE: 5/10 LOCATION: cranial TECHNIQUE: Multiple contiguous axial images were obtained of the head. Using automated exposure control and adj ustment of the mA and/or kV according to patient size, radiation dose was kept as low as reasonably a chievable to obtain optimal diagnostic quality images. DICOM format image data is available electro nically for review and comparison. FINDINGS: CEREBRUM: The ventricles are normal for age. No evidence of midline shift, mass lesion, hemorrhage or acute in farction. No extra-axial fluid collections are seen. POSTERIOR FOSSA: The cerebellum and brainstem are intact. The 4th ventricle is midline. The cerebellopontine angle i s unremarkable. EXTRACRANIAL: The visualized portion of the orbits is intact. SKULL: The calvaria is intact. No evidence of skull fracture. CONCLUSION: No acute disease. Aniceto Humphreys MD on September 23, 2017 at 20:50 Board Certified Radiologist. This report was verified electronically.
--- NOTE | 2017-09-23 21:08 | RADRPT ---
EXAM DATE/TIME: 09/23/2017 20:35 [facility] COMPARISON: No previous studies available for comparison. INDICATIONS : Trauma. Fell and hit head 2 days ago. RADIATION DOSE: 26.60 CTDIvol (mGy) MEDICAL HISTORY : Diabetes mellitus type 2. SURGICAL HISTORY : Cholecystectomy. Tubal ligation.Hysterectomy. ENCOUNTER: Initial ACUITY: 2 days PAIN SCALE: 5/10 LOCATION: neck TECHNIQUE: Volumetric scanning of the cervical spine was performed. Multiplanar reconstructions in the sagittal, coronal and oblique axial planes were performed. Using automated exposure control and adjustment o f the mA and/or kV according to patient size, radiation dose was kept as low as reasonably achievable to obtain optimal diagnostic quality images. DICOM format image data is available electronically f or review and comparison. FINDINGS: No fracture or prevertebral soft tissue swelling is noted. Cervical spondylosis is noted at C5-6 and C6-7. There is straightening of the normal cervical lordosis. C2-C3: The bony spinal canal is normal in size. No evidence of disc bulge or herniation. The neural forami na are bilaterally patent. C3-C4: The bony spinal canal is normal in size. No evidence of disc bulge or herniation. The neural forami na are bilaterally patent. C4-C5: The bony spinal canal is normal in size. No evidence of disc bulge or herniation. The neural forami na are bilaterally patent. C5-C6: The bony spinal canal is normal in size. No evidence of disc bulge or herniation. The neural forami na are bilaterally patent. C6-C7: The bony spinal canal is normal in size. No evidence of disc bulge or herniation. The neural forami na are bilaterally patent. C7-T1: The bony spinal canal is normal in size. No evidence of disc bulge or herniation. The neural forami na are bilaterally patent. CONCLUSION: 1. No acute fracture or prevertebral soft tissue swelling. 2. Cervical spondylosis at C5-6 and C6-7. 3. Straightening of the normal cervical lordosis. Aniceto Humphreys MD on September 23, 2017 at 21:03 Board Certified Radiologist. This report was verified electronically.
[2017-09-23 22:48] VITALS: BP 117/71; PULSE 80; RESP 16; O2SAT 97
== END 2017-09-23 22:57 | disposition home or self-care (01) ==
LOC: PHEFT 18:15
DX: S09.90XA Unspecified injury of head, initial encounter (principal); E07.9 Disorder of thyroid, unspecified; E11.9 Type 2 diabetes mellitus without complications; J45.909 Unspecified asthma, uncomplicated; W19.XXXA Unspecified fall, initial encounter; Z79.4 Long term (current) use of insulin; Z87.891 Personal history of nicotine dependence
CPT/HCPCS: 70450; 72125; 96361; 96374; 96375; 99284; J0780; J1200; J1885; J7030

== ENCOUNTER 2017-11-23 17:12 | Emergency (ER) | payer OTHER ==
[~2017-11-23] VITALS: Ht 165.1 cm; Wt 94.0 kg
[~2017-11-23 17:12] MED LIST changes: -CYCL10TA PO; -IBUP-232 PO
[2017-11-23 17:16] VITALS: BP 140/62; PULSE 77; RESP 16; TEMP 97.6; O2SAT 95
[2017-11-23] MEDS ORDERED: SODIUM CHLOR 0.9% 1000 ML INJ 1,000 ML IV ONE (17:52)
--- NOTE | 2017-11-23 17:58 | PD ---
HPI Chief Complaint: Headache Time Seen by Provider: 17:46 Travel History International Travel<30 days: No Contact w/Intl Traveler<30days: No Traveled to known affect area: No History of Present Illness HPI Patient is a 36-year-old female who presents to emergency room with complaints of migraine headache. Patient reports that since yesterday night around 8 PM, she has had a left-sided frontal throbbing sensation to her head. Patient reports nausea and vomiting with along with photophobia of her symptoms. Patient reports that she is currently being treated by Dr. Stevens for her migraine headaches, she did receive Botox yesterday which seems to help prevent her migraine headaches. Patient reports that headache is similar to her previous symptoms, patient denies any fever chills with her symptoms. Reports that this is not the worst headache of her life. Patient denies any fever or chills. Patient did try taking her migraine medications along with ibuprofen with no relief of symptoms. PFSH Past Medical History Hx Anticoagulant Therapy: No Asthma: Yes Blood Disorders: No Anxiety: Yes Depression: Yes Cancer: No Cardiovascular Problems: Yes (RAPID HEART RATE; EVAL BY MARINE ENGINEER - [facility]) Chemotherapy: No Diabetes: Yes Diminished Hearing: No Endocrine: No Gastrointestinal Disorders: Yes (OCCAS ACID REFLUX ) Genitourinary: No Hepatitis: No Hiatal Hernia: No Heparin Induced Thrombocytopen: No Hypertension: No Immune Disorder: No Implanted Vascular Access Dvce: No Musculoskeletal: No Neurologic: No Psychiatric: Yes (DEPRESSION, ANXIETY) Reproductive: Yes (IUD/ENDOMETRIOSIS/PELVIC PAIN/HEAVY MENSTRUATION) Respiratory: Yes (asthma) Migraines: Yes Radiation Therapy: No Sickle Cell Disease: No Thyroid Disease: Yes ?: Not : 2 Para: 2 Tubal Ligation: Yes (1999) Past Surgical History Abdominal Surgery: Yes (gallbladder mesh removal and hernia repair) AICD: No Arteriovenous Shunt: No Body Medical Devices: NONE Cardiac Surgery: No Cholecystectomy: Yes Ear Surgery: No Endocrine Surgery: No Eye Surgery: No Genitourinary Surgery: No Gynecologic Surgery: Yes (hysterctomy, ovary/cyst removed) Hysterectomy: Yes Insulin Pump: No Joint Replacement: No Neurologic Surgery: No Oral Surgery: No Pacemaker: No Thoracic Surgery: No Other Surgery: Yes (HERNIA REPAIR) Social History Alcohol Use: Yes () Tobacco Use: No (QUIT 2014) Substance Use: No Allergies-Medications (Allergen,Severity, Reaction): Coded Allergies: No Known Allergies (Unverified Allergy, Unknown, 11/23/17) Reported Meds & Prescriptions Reported Meds & Active Scripts Active Zofran Odt (Ondansetron Odt) 4 Mg Tab 4 Mg SL Q6HR PRN Synthroid (Levothyroxine Sodium) 50 Mcg Tab 75 Mcg PO DAILY@06 Reported Topiramate 200 Mg Tab 200 Mg PO DAILY Vitamin B12 (Cyanocobalamin (Vitamin B-12)) 2,500 Mcg Tab.chew 50,000 Mcg PO WEEKLY Proair Hfa 8.5 GM Inh (Albuterol Sulfate) 90 Mcg/Act Aer 2 Puff INH Q4-6H PRN 108 mcg/actuation Lantus Inj (Insulin Glargine) 1,000 Unit/10 Ml Vial 24 Units SQ HS Advair Diskus Inh (Fluticasone-Salmeterol Inh) 250-50 Mcg/Blist Aer 1 Puff INH BID Rinse mouth after use. Escitalopram (Escitalopram Oxalate) 20 Mg Tab 20 Mg PO DAILY Metformin ER (Metformin HCl) 1,000 Mg Adrián 1,000 Mg PO DAILY With evening meal Review of Systems General / Constitutional: No: Fever Eyes: Positive: Photophobia, No: Visual changes HENT: Positive: Headaches Cardiovascular: No: Chest Pain or Discomfort Respiratory: No: Shortness of Breath Gastrointestinal: Positive: Nausea, Vomiting, No: Abdominal Pain Genitourinary: No: Dysuria Musculoskeletal: No: Pain Skin: No Rash Neurologic: Positive: Headache, No: Weakness Psychiatric: No: Depression Endocrine: No: Polydipsia Hematologic/Lymphatic: No: Easy Bruising Physical Exam Narrative GENERAL: moderate distress SKIN: Focused skin assessment warm/dry. HEAD: Atraumatic. Normocephalic. EYES: Pupils equal and round. No scleral icterus. No injection or drainage. ENT: No nasal bleeding or discharge. Mucous membranes pink and moist. NECK: Trachea midline. No JVD. CARDIOVASCULAR: Regular rate and rhythm. No murmur appreciated. RESPIRATORY: No accessory muscle use. Clear to auscultation. Breath sounds equal bilaterally. GASTROINTESTINAL: Abdomen soft, non-tender, nondistended. Hepatic and splenic margins not palpable. MUSCULOSKELETAL: No obvious deformities. No clubbing. No cyanosis. No edema. NEUROLOGICAL: Awake and alert. No obvious cranial nerve deficits. Motor grossly within normal limits. Normal speech. PSYCHIATRIC: Appropriate mood and affect; insight and judgment normal. Data Data Last Documented VS Vital Signs Date Time Temp Pulse Resp B/P (MAP) Pulse Ox O2 Delivery O2 Flow Rate FiO2 11/23/17 19:12 74 20 98 Room Air 11/23/17 19:12 104/59 (74) 11/23/17 17:16 97.6 Orders Orders Ecg Monitoring (11/23/17 17:52) Iv Access Insert/Monitor (11/23/17 17:52) Oximetry (11/23/17 17:52) Sodium Chloride 0.9% Flush (Ns Flush) (11/23/17 18:00) Diphenhydramine Inj (Benadryl Inj) (11/23/17 18:00) Metoclopramide Inj (Reglan Inj) (11/23/17 18:00) Sodium Chlor 0.9% 1000 Ml Inj (Ns 1000 M (11/23/17 17:52) Dexamethasone Inj (Decadron Inj) (11/23/17 18:00) Ed Urine Pregnancytest Poc (11/23/17 17:55) Ketorolac Inj (Toradol Inj) (11/23/17 19:30) MDM Medical Decision Making Medical Screen Exam Complete: Yes Emergency Medical Condition: Yes Medical Record Reviewed: Yes Interpretation(s) Vital Signs Date Time Temp Pulse Resp B/P (MAP) Pulse Ox O2 Delivery O2 Flow Rate FiO2 11/23/17 17:16 97.6 77 16 140/62 (88) 95 Differential Diagnosis Cephalgia, migraine headache Narrative Course During the course of the patients emergency department visit, the patients history, examination, and differential diagnosis were reviewed with the patient. The patient was placed on a residential monitor with oximetry and frequent blood pressure monitoring. The patient had an IV access obtained The patient was initially provided a migraine cocktail and she presents the emergency room with her typical migraine headache. Patient does follow-up with Dr. Stevens, her neurologist whom she receives Botox treatments as well as Topamax for her migraine headaches Ct of head on 09/23/17 was neg for intracranial process as she presented on that day with similar symptoms Patient with complete resolution of headache at this time. Patient will follow- up with a neurologist and will return to the emergency room as needed. Patient appreciative of care Diagnosis Primary Impression: Cephalgia Qualified Codes: R51 - Headache Patient Instructions: General Instructions Additional Instructions: Please follow-up with the neurologist in 2-3 days Return to ER as needed or if symptoms return or worsen Disposition: 01 DISCHARGE HOME Condition: Stable Elizabeth Sotelo DO Nov 23, 2017 17:58
[2017-11-23] MEDS ORDERED: DEXAMETHASONE SOD PHOS 20 MG/5 ML VIAL IV PUSH ONE (18:00)
[2017-11-23] MEDS ORDERED: SODIUM CHLORIDE 0.9% FLUSH 10 ML FLUSH IVF PRN (18:00)
[2017-11-23] MEDS ORDERED: diphenhydrAMINE HCL 50 MG/ML VIAL IVP ONE (18:00)
[2017-11-23] MEDS ORDERED: METOCLOPRAMIDE HCL 10 MG/2 ML VIAL IVP ONE (18:00)
[2017-11-23 18:20] VITALS: BP 111/65; PULSE 76; RESP 20; O2SAT 94
[2017-11-23 18:21] VITALS: O2SAT 97
[2017-11-23 19:12] VITALS: BP 104/59; PULSE 74; RESP 20; O2SAT 98
[2017-11-23] MEDS ORDERED: KETOROLAC TROMETHAMINE 30 MG/ML (IVP) VIAL IVP ONE (19:30)
[2017-11-23 19:48] VITALS: BP 107/57; PULSE 71; RESP 20; O2SAT 98
[2017-11-23 20:54] VITALS: BP 113/60
== END 2017-11-23 20:57 | disposition home or self-care (01) ==
LOC: PHED 17:12
DX: R51 Headache (principal); R11.2 Nausea with vomiting, unspecified; J45.909 Unspecified asthma, uncomplicated; F41.9 Anxiety disorder, unspecified; F32.9 Major depressive disorder, single episode, unspecified; E11.9 Type 2 diabetes mellitus without complications; K21.9 Gastro-esophageal reflux disease without esophagitis; E07.9 Disorder of thyroid, unspecified; Z87.891 Personal history of nicotine dependence
CPT/HCPCS: 96361; 96374; 96375; 99284; J1100; J1200; J1885; J2765; J7030

== ENCOUNTER 2018-01-22 14:14 | Inpatient (IN) | payer OTHER ==
[~2018-01-22] VITALS: Ht 165.1 cm; Wt 93.7 kg
[2018-01-22 14:21] VITALS: BP 114/56; PULSE 93; RESP 16; TEMP 98.9; O2SAT 97
[2018-01-22] MEDS ORDERED: WELL200T PO (15:01)
[2018-01-22 15:49] LABS: AUTOMATED NEUTROPHIL # 3.9 TH/MM3 (1.8-7.7); BASOPHIL % 0.5 % (0.0-2.0); EOSINOPHIL # 0.2 TH/MM3 (0-0.4); EOSINOPHIL % 2.9 % (0.0-4.0); HEMATOCRIT 37.6 % (35.0-46.0); LYMPH % 27.4 % (9.0-44.0); LYMPHOCYTE # 1.7 TH/MM3 (1.0-4.8); MEAN CELL VOLUME 83.2 FL (80.0-100.0); MEAN CORPUSCULAR HEMOGLOBIN 28.8 PG (27.0-34.0); MEAN CORPUSCULAR HGB CONC 34.6 % (32.0-36.0); MEAN PLATELET VOLUME 8.3 FL (7.0-11.0); MONO % 5.7 % (0.0-8.0); MONOCYTE # 0.4 TH/MM3 (0-0.9); NEUT % 63.5 % (16.0-70.0); PLATELET COUNT 187 TH/MM3 (150-450); RED BLOOD COUNT 4.51 MIL/MM3 (4.00-5.30); RED CELL DISTRIBUTION WIDTH 15.1 % (11.6-17.2); WHITE BLOOD COUNT 6.2 TH/MM3 (4.0-11.0)
[2018-01-22 15:56] LABS: BILIRUBIN, URINE NEG (NEG); BLOOD, URINE NEG (NEG); GLUCOSE,URINE 1000 mg/dL (NEG); KETONE, URINE TRACE mg/dL (NEG); MUCUS URINE FEW /lpf (OCC); NITRITE,URINE NEG (NEG); PH, URINE 5.5 (5.0-8.5); SQUAMOUS EPITHELIAL CELL URINE <1 /hpf (0-5); URINE COLOR YELLOW (YELLW/STRAW); URINE LEUKOCYTE ESTERASE NEG (NEG)
--- NOTE | 2018-01-22 15:57 | PD ---
HPI Chief Complaint: Psychiatric Symptoms Time Seen by Provider: 14:56 Travel History International Travel<30 days: No Contact w/Intl Traveler<30days: No Traveled to known affect area: No History of Present Illness HPI 37-year-old female presents to the emergency department voluntarily for psychological evaluation. She is complaining of suicidal and homicidal ideations. She does not have a plan for either. She says she is "having thoughts, but does not want to actually do anything." She says she has a lot of rage and anger. Says she gets aggravated by "little things." Has history of suicidal attempts by taking pills. Denies auditory or visual hallucinations. Reports marijuana use. Occasional alcohol use. No tobacco use. Symptoms are moderate to severe in severity. Has not taken any medications or try any treatments to alleviate her symptoms. Aggravated by "little things." No known relieving factors. Onset unknown. Duration unknown. Does not see a psychiatrist. Has history of anxiety depression. Primary care provider is Dr. March. No known allergies. History of diabetes mellitus and asthma. Has no other medical complaints. No other modifying factors or associated signs and symptoms. PFSH Past Medical History Hx Anticoagulant Therapy: No Asthma: Yes Blood Disorders: No Anxiety: Yes Depression: Yes Cancer: No Cardiovascular Problems: Yes (RAPID HEART RATE; EVAL BY STRESS ENGINEER - [facility]) Chemotherapy: No Diabetes: Yes Patient Takes Glucophage: Yes Diminished Hearing: No Endocrine: No Gastrointestinal Disorders: Yes (OCCAS ACID REFLUX ) Genitourinary: No Hepatitis: No Hiatal Hernia: No Heparin Induced Thrombocytopen: No Hypertension: No Immune Disorder: No Implanted Vascular Access Dvce: No Medical other: No Musculoskeletal: No Neurologic: No Psychiatric: Yes (DEPRESSION, ANXIETY) Reproductive: Yes (ENDOMETRIOSIS) Respiratory: Yes (asthma) Migraines: Yes Radiation Therapy: No Sickle Cell Disease: No Thyroid Disease: Yes ?: Not : 2 Para: 2 Tubal Ligation: Yes (1999) Past Surgical History Abdominal Surgery: Yes (gallbladder mesh removal and hernia repair) AICD: No Arteriovenous Shunt: No Body Medical Devices: NONE Cardiac Surgery: No Cholecystectomy: Yes Ear Surgery: No Endocrine Surgery: No Eye Surgery: No Genitourinary Surgery: No Gynecologic Surgery: Yes (hysterctomy, ovary/cyst removed) Hysterectomy: Yes (PARTIAL) Insulin Pump: No Joint Replacement: No Neurologic Surgery: No Oral Surgery: No Pacemaker: No Thoracic Surgery: No Other Surgery: Yes (HERNIA REPAIR) Social History [facility] Use: Yes ([facility] Tobacco Use: No (QUIT 2014) Substance Use: No Allergies-Medications (Allergen,Severity, Reaction): Coded Allergies: No Known Allergies (Unverified Allergy, Unknown, 01/22/18) Reported Meds & Prescriptions Reported Meds & Active Scripts Active Synthroid (Levothyroxine Sodium) 50 Mcg Tab 75 Mcg PO DAILY@06 Reported Wellbutrin SR 12 HR (Bupropion HCl) 200 Mg Tab 300 Mg PO Q12HR Vitamin B12 (Cyanocobalamin (Vitamin B-12)) 2,500 Mcg Tab.chew 50,000 Mcg PO WEEKLY Proair Hfa 8.5 GM Inh (Albuterol Sulfate) 90 Mcg/Act Aer 2 Puff INH Q4-6H PRN 108 mcg/actuation Lantus Inj (Insulin Glargine) 1,000 Unit/10 Ml Vial 24 Units SQ HS Advair Diskus Inh (Fluticasone-Salmeterol Inh) 250-50 Mcg/Blist Aer 1 Puff INH BID Rinse mouth after use. Escitalopram (Escitalopram Oxalate) 20 Mg Tab 20 Mg PO DAILY Metformin ER (Metformin HCl) 1,000 Mg Adrián 1,000 Mg PO DAILY With evening meal Review of Systems Except as stated in HPI: all other systems reviewed are Neg Physical Exam Narrative GENERAL: Well-nourished, well-developed female patient, in no acute distress SKIN: Warm and dry. HEAD: Atraumatic. Normocephalic. EYES: Pupils equal and round. ENT: Mucosa pink and moist. NECK: Supple. Trachea midline. CARDIOVASCULAR: Regular rate and rhythm. No murmur appreciated. RESPIRATORY: No accessory muscle use. Clear to auscultation. Breath sounds equal bilaterally. GASTROINTESTINAL: Abdomen soft, non-tender, nondistended. Hepatic and splenic margins not palpable. Bowel sounds are active 4 quadrants. MUSCULOSKELETAL: No obvious deformities. No clubbing. No cyanosis. No edema. BACK: No CVA tenderness. NEUROLOGICAL: Awake and alert. Oriented 3. No obvious cranial nerve deficits. Motor grossly within normal limits. Normal speech. Moves all extremities. 5/5 strength to all extremities. PSYCHIATRIC: No delusional thought processes. No hallucinations. Data Data Last Documented VS Vital Signs Date Time Temp Pulse Resp B/P (MAP) Pulse Ox O2 Delivery O2 Flow Rate FiO2 01/22/18 15:03 18 01/22/18 14:21 98.9 93 114/56 (75) 97 Orders Orders Complete Blood Count With Diff (01/22/18 14:57) Comprehensive Metabolic Panel (01/22/18 14:57) Thyroid Stimulating Hormone (01/22/18 14:57) Urinalysis - C+S If Indicated (01/22/18 14:57) Ed Urine Pregnancytest Poc (01/22/18 14:57) Psych Screen (01/22/18 14:57) Drug Screen, Random Urine (01/22/18 14:57) Alcohol (Ethanol) (01/22/18 14:57) Salicylates (Aspirin) (01/22/18 14:57) Tylenol (Acetaminophen) (01/22/18 14:57) Labs Laboratory Tests Test 01/22/18 15:17 White Blood Count 6.2 TH/MM3 Red Blood Count 4.51 MIL/MM3 Hemoglobin 13.0 GM/DL Hematocrit 37.6 % Mean Corpuscular Volume 83.2 FL Mean Corpuscular Hemoglobin 28.8 PG Mean Corpuscular Hemoglobin Concent 34.6 % Red Cell Distribution Width 15.1 % Platelet Count 187 TH/MM3 Mean Platelet Volume 8.3 FL Neutrophils (%) (Auto) 63.5 % Lymphocytes (%) (Auto) 27.4 % Monocytes (%) (Auto) 5.7 % Eosinophils (%) (Auto) 2.9 % Basophils (%) (Auto) 0.5 % Neutrophils # (Auto) 3.9 TH/MM3 Lymphocytes # (Auto) 1.7 TH/MM3 Monocytes # (Auto) 0.4 TH/MM3 Eosinophils # (Auto) 0.2 TH/MM3 Basophils # (Auto) 0.0 TH/MM3 CBC Comment DIFF FINAL Differential Comment MDM Medical Decision Making Medical Screen Exam Complete: Yes Emergency Medical Condition: Yes Medical Record Reviewed: Yes Differential Diagnosis Encounter for psychological evaluation, depression, mood disorder, suicidal ideation, homicidal ideation Narrative Course Patient presents voluntarily. Physical examination and vital signs are essentially unremarkable. Patient has no medical complaints to report. Psych screen has been ordered. If the laboratory results are unremarkable, the patient will be medically cleared for psychiatric evaluation and disposition. Diagnosis Primary Impression: Encounter for psychological evaluation Condition: Stable Rassi,Cristina K OIL LEASE BROKER Jan 22, 2018 15:57
[2018-01-22 16:10] LABS: ALBUMIN 3.1 GM/DL (3.4-5.0); AST (GOT) 31 U/L (15-37); BICARBONATE 18.9 MEQ/L (21.0-32.0); BLOOD UREA NITROGEN 4 MG/DL (7-18); CALCIUM 8.4 MG/DL (8.5-10.1); CHLORIDE 106 MEQ/L (98-107); CREATININE 0.81 MG/DL (0.50-1.00); GLOMERULAR FILTRATION RATE 79 ML/MIN (>89); GLUCOSE,RANDOM 248 MG/DL (74-106); SODIUM (NA) 139 MEQ/L (136-145)
[2018-01-22 16:21] LABS: ALKALINE PHOSPHATASE 74 U/L (45-117); ALT (GPT) 71 U/L (10-53); TOTAL BILIRUBIN ADULT 0.3 MG/DL (0.2-1.0); TOTAL PROTEIN 6.9 GM/DL (6.4-8.2)
[2018-01-22 16:22] LABS: ACETAMINOPHEN LESS THAN 2.0 MCG/ML (10.0-30.0)
[2018-01-22 18:38] VITALS: BP_SYST 127; BP_SYST 157; BP_DIAS 63; BP_DIAS 93; PULSE 75; PULSE 86; RESP 18; O2SAT 97; O2SAT 99
[2018-01-23 00:20] VITALS: BP 113/64; PULSE 69; RESP 18; TEMP 97; O2SAT 96
[2018-01-23] MEDS: LEVOTHYROXINE SODIUM 75 MCG TAB PO SCH (06:00)
[2018-01-23 06:43] VITALS: BP 135/90; PULSE 76; RESP 18; TEMP 97.4; O2SAT 99
[2018-01-23] MEDS: metFORMIN HCL 500 MG TAB PO SCH (09:51)
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
[2018-01-23] MEDS ORDERED: GLUCAGON 1 MG/ML VIAL OTHER PRN (15:30)
[2018-01-23] MEDS ORDERED: ALBUTEROL SULFATE 90 MCG/ACT HFA 8 GM INHALER INH PRN (15:30)
[2018-01-23] MEDS ORDERED: BENZTROPINE MESYLATE 1 MG TAB PO PRN (15:30)
[2018-01-23] MEDS ORDERED: BENZTROPINE MESYLATE 2 MG/2 ML VIAL IM PRN (15:30)
[2018-01-23] MEDS ORDERED: MAGNESIUM HYDROXIDE SUSP 30 ML CUP PO PRN (15:30)
[2018-01-23] MEDS ORDERED: DEXTROSE 50% IN WATER 50 ML VIAL(D50) IV PUSH PRN (15:30)
[2018-01-23] MEDS ORDERED: NICOTINE 21 MG/24 HR PATCH T-DERMAL PRN (15:30)
[2018-01-23] MEDS ORDERED: ALUMINUM/MAGNESIUM/SIMETH 30 ML CUP PO PRN (15:30)
--- NOTE | 2018-01-23 16:05 | PD.CONS ---
[facility] Reason for Consult Medical management Primary Care Physician Polina Irwin D.O. Diagnoses: History of Present Illness 37-year-old female for past medical history of diabetes type 2, asthma , hyperlipidemia presented initially to the ED for evaluation of anger and major depression. Patient was subsequently admitted voluntary to psychiatry.[facility] for management of patient's multiple medical and chronic problems including diabetes type 2. Abnormal lab include blood glucose of 100+ despite patient currently on Lantus 24 units at bedtime and Metformin 1000mg every morning. During my exam, patient denied any suicidal or homicidal ideations. She reported some abdominal pain which improved however denies any nausea or vomiting. She has no chest pain or shortness of breath. Review of Systems Except as stated in HPI: all other systems reviewed are Neg Past Family Social History Allergies: Coded Allergies: No Known Allergies (Unverified Allergy, Unknown, 01/22/18) Past Medical History Diabetes type 2 Hyperlipidemia Hypothyroidism Depression Anxiety Anger issues Past Surgical History Partial abdominal hysterectomy Cholecystectomy Hernia repair 2 Family History Mother had uterine cancer Family positive for CAD Social History Patient currently denies tobacco, reports social alcohol intake and occasional medicinal marijuana use Physical Exam Vital Signs Vital Signs Date Time Temp Pulse Resp B/P (MAP) Pulse Ox O2 Delivery O2 Flow Rate FiO2 01/23/18 06:43 97.4 76 18 135/90 (105) 99 Room Air 01/23/18 00:20 97.0 69 18 113/64 (80) 96 Room Air 01/22/18 18:38 75 18 127/63 (84) 97 Room Air Physical Exam GENERAL: This is a well-nourished, well-developed patient, in no apparent distress. SKIN: No rashes, ecchymoses or lesions. Cool and dry. HEAD: Atraumatic. Normocephalic. No temporal or scalp tenderness. EYES: Pupils equal round and reactive. Extraocular motions intact. No scleral icterus. No injection or drainage. ENT: Nose without bleeding, purulent drainage or septal hematoma. Throat without erythema, tonsillar hypertrophy or exudate. Uvula midline. Airway patent. NECK: Trachea midline. No JVD or lymphadenopathy. Supple, nontender, no meningeal signs. CARDIOVASCULAR: Regular rate and rhythm without murmurs, gallops, or rubs. RESPIRATORY: Clear to auscultation. Breath sounds equal bilaterally. No wheezes , rales, or rhonchi. GASTROINTESTINAL: Abdomen soft, non-tender, nondistended. No hepato-splenomegaly , or palpable masses. No guarding. MUSCULOSKELETAL: Extremities without clubbing, cyanosis, or edema. No joint tenderness, effusion, or edema noted. No calf tenderness. Negative Homans sign bilaterally. NEUROLOGICAL: Awake and alert. Cranial nerves II through XII intact. Motor and sensory grossly within normal limits. Five out of 5 muscle strength in all muscle groups. Normal speech. Result Diagram: 01/22/18 1517 01/22/18 1517 Assessment and Plan Assessment and Plan 37-year-old female with Major depression Acute mood disorder Anger Management per psychiatry Diabetes type 2 Poorly controlled Increase Levemir to 30U at bedtime, resume metformin 1000 mg every morning and start medium insulin sliding scale Check hemoglobin A1c Asthma No current exacerbation Resume patient's outpatient medications Hypothyroidism Resume Synthroid DVT prophylaxis: Encourage ambulation Thank you for this consultation,[facility] will follow during hospitalization Code Status Full code Discussed Condition With Patient Demetri Banuelos MD Jan 23, 2018 16:05
[2018-01-23] MEDS: INSULIN ASPART SUPPLEMENTAL SCALE SQ SCH ×2 (17:00→21:00)
[2018-01-23] MEDS: diphenhydrAMINE HCL 50 MG CAP PO PRN (21:00)
[2018-01-23] MEDS: BUDESONIDE-FORMOTEROL 160/4.5 MCG INHALER INH SCH (21:00)
[2018-01-23] MEDS: ALPRAZolam 0.5 MG TAB PO PRN (21:00)
[2018-01-23] MEDS ORDERED: INSULIN DETEMIR 100 UNITS/ML VIAL SQ SCH (21:00)
[2018-01-23] MEDS: INSULIN DETEMIR 100 UNITS/ML VIAL SQ SCH (21:00)
[2018-01-23 21:50] VITALS: BP 104/74; PULSE 85; RESP 17; TEMP 96.3
[2018-01-24 05:46] VITALS: BP 108/72; PULSE 71; RESP 16; TEMP 97.6; O2SAT 98
[2018-01-24] MEDS: LEVOTHYROXINE SODIUM 75 MCG TAB PO SCH (05:53)
[2018-01-24] MEDS: INSULIN ASPART SUPPLEMENTAL SCALE SQ SCH ×4 (06:17→20:42)
[2018-01-24] MEDS: BUDESONIDE-FORMOTEROL 160/4.5 MCG INHALER INH SCH ×2 (08:55→21:18)
[2018-01-24] MEDS: ESCITALOPRAM OXALATE 20 MG TAB PO SCH (08:55)
[2018-01-24] MEDS: metFORMIN HCL 500 MG TAB PO SCH (08:56)
[2018-01-24] MEDS: ARIPiprazole 5 MG TAB PO SCH (08:56)
[2018-01-24] MEDS: ACETAMINOPHEN 325 MG TAB PO PRN ×2 (09:00→21:18)
[2018-01-24 09:14] LABS: BICARBONATE 24.1 MEQ/L (21.0-32.0); BLOOD UREA NITROGEN 4 MG/DL (7-18); CALCIUM 8.6 MG/DL (8.5-10.1); CHLORIDE 105 MEQ/L (98-107); CHOLESTEROL 202 MG/DL (120-200); CHOLESTEROL/ HDL RATIO 5.28 RATIO; CREATININE 0.54 MG/DL (0.50-1.00); GLOMERULAR FILTRATION RATE 126 ML/MIN (>89); GLUCOSE,RANDOM 127 MG/DL (74-106); HDL CHOLESTEROL 38.2 MG/DL (40.0-60.0); LDL CHOLESTEROL 121 MG/DL (0-99); SODIUM (NA) 139 MEQ/L (136-145); TRIGLYCERIDES 213 MG/DL (42-150)
--- NOTE | 2018-01-24 10:59 | HHI.PYPN ---
Subjective Chief Complaint: Depression, irritability, SI Remarks Patient seen and examined with nurse. Chart reviewed. Case discussed with nursing staff. Case discussed in treatment team. On my examination today, the patient complains of some ongoing irritability. Sleep somewhat poor. Appetite poor, although she has been experiencing some nausea. She denies any suicidal or homicidal ideation. Denies side effects from medications. No other acute physical complaints. Review of Systems Except as stated in HPI: all other systems reviewed are Neg Mental Status Examination Appearance: Appropriate Consciousness: Alert Orientation: x4 Motor Activity: Other (No hand tremor, no dystonia, no dyskinesia noted.) Speech: Unremarkable Language: Adequate Fund of Knowledge: Adequate Attention and Concentration: Adequate Memory: Unremarkable (Grossly intact on clinical exam) Mood: Irritable Affect: Appropriate Thought Process & Associations: Intact, Logical, Linear Thought Content: Appropriate Hallucination Type: None Delusion Type: None Suicidal Ideation: No Suicidal Plan: No Suicidal Intention: No Homicidal Ideation: No Homicidal Plan: No Homicidal Intention: No Insight: Fair Judgment: Impulsive Results Labs Test 01/24/18 07:51 Blood Urea Nitrogen 4 MG/DL Creatinine 0.54 MG/DL Random Glucose 127 MG/DL Calcium Level 8.6 MG/DL Sodium Level 139 MEQ/L Potassium Level 3.2 MEQ/L Chloride Level 105 MEQ/L Carbon Dioxide Level 24.1 MEQ/L Anion Gap 10 MEQ/L Estimat Glomerular Filtration Rate 126 ML/MIN Triglycerides Level 213 MG/DL Cholesterol Level 202 MG/DL LDL Cholesterol 121 MG/DL HDL Cholesterol 38.2 MG/DL Cholesterol/HDL Ratio 5.28 RATIO Labs reviewed. Hypokalemia noted. EKG ordered, pending. Vitals/IOs Vital Signs Date Time Temp Pulse Resp B/P (MAP) Pulse Ox O2 Delivery O2 Flow Rate FiO2 01/24/18 05:46 97.6 71 16 108/72 (84) 98 01/23/18 06:43 Room Air Assessment & Plan Problem List: (1) Major depressive disorder, recurrent, moderate ICD Codes: F33.1 - Major depressive disorder, recurrent, moderate Assessment & Plan First dose of Abilify this morning. Continue other psychotropics as ordered. Replete potassium and recheck a BMP and magnesium in the morning. Zofran as needed for nausea. Further management as per the hospitalist. Hospitalist input noted and appreciated. Continue to monitor on the inpatient unit. Continue other medications and care as ordered. Justification for Cont. Inpt. Risk for decompensation in less restrictive environment. Discharge Planning Pending psychiatric stabilization Request HC Surrog/Guard Advoc?: No Dewey Smith MD Jan 24, 2018 10:59
[2018-01-24] MEDS ORDERED: POTASSIUM CHLORIDE 10 MEQ CONTROLLED RELEASE TAB PO ONE (12:45)
[2018-01-24] MEDS: ONDANSETRON ODT 4 MG TAB PO PRN (13:40)
--- NOTE | 2018-01-24 16:26 | HHI.PR ---
Subjective Remarks Follow-up for diabetes, hyperlipidemia. The patient reports mild constant epigastric pain described as cramping with some distention. She reports nausea but no vomiting. She reports a few episodes of watery nonbloody yellow-green diarrhea. Denies any melena or hematochezia. She states she has been on metformin for 2 or 3 years never had this problem, however she states it is possible that she was not quite compliant with metformin recently. She reports recent subjective fevers and chills, no documented fevers. She does admit to occasional NSAID use, but denies any recent increased use. She denies any history of gastric ulcers. She states she has already had a cholecystectomy. She also had issues with her mesh after an abdominal hernia repair, and the mesh had to be removed. 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 She reports a history of EGD many years ago which she believes showed inflammation, but no ulcers. Objective Vitals Vital Signs Date Time Temp Pulse Resp B/P (MAP) Pulse Ox O2 Delivery O2 Flow Rate FiO2 01/24/18 05:46 97.6 71 16 108/72 (84) 98 01/23/18 21:50 96.3 85 17 104/74 (84) I/O 01/23/18 01/23/18 01/23/18 01/24/18 01/24/18 01/24/18 07:00 15:00 23:00 07:00 15:00 23:00 Intake Total 120 ml Balance 120 ml Intake Oral 120 ml # Voids 1 # Bowel Movements 0 Result Diagram: 01/22/18 1517 01/24/18 0751 Objective Remarks GENERAL: Well-nourished, well-developed middle-aged female patient in [facility]. SKIN: Warm and dry. No rash. HEENT: Normocephalic. Atraumatic. Pupils equal and round. Mucous membranes pink and moist. CARDIOVASCULAR: Regular rate and rhythm. No murmur appreciated. RESPIRATORY: No accessory muscle use. Clear to auscultation. Breath sounds equal bilaterally. GASTROINTESTINAL: Abdomen soft, mild epigastric tenderness to palpation, nondistended. Normoactive bowel sounds x4. MUSCULOSKELETAL: No obvious deformities. Extremities without clubbing, cyanosis , or edema. NEUROLOGICAL: Awake and alert. No obvious cranial nerve deficits. Motor grossly within normal limits. Moving all extremities spontaneously. Normal speech. PSYCHIATRIC: Appropriate mood and affect; insight and judgment normal. Medications and IVs Current Medications Medications (Trade) Dose Ordered Sig/Kinsey Route Start Time Stop Time Status Last Admin (Glucophage) 1,000 mg DAILY PO 01/23/18 09:00 01/24/18 08:56 (Synthroid) 75 mcg DAILY@0600 PO 01/23/18 06:00 01/24/18 05:53 (Lexapro) 20 mg DAILY PO 01/24/18 09:00 01/24/18 08:55 (Symbicort 160-4.5 Mcg Inh) 2 puff BID INH 01/23/18 21:00 01/24/18 08:55 (Proair Hfa Inh) 2 puff Q4H PRN INH 01/23/18 15:30 (Xanax) 0.5 mg Q8H PRN PO 01/23/18 15:30 01/23/18 21:00 (Abilify) 5 mg DAILY PO 01/24/18 09:00 01/24/18 08:56 (D50w (Vial) Inj) 50 ml UNSCH PRN IV PUSH 01/23/18 15:30 (Glucagon Inj) 1 mg UNSCH PRN OTHER 01/23/18 15:30 (NovoLOG SUPPLEMENTAL SCALE) 1 ACHS SLIDING SCALE SQ 01/23/18 17:00 01/23/18 21:00 (Benadryl) 50 mg HS PRN PO 01/23/18 21:00 01/23/18 21:00 (Tylenol) 650 mg Q4H PRN PO 01/23/18 15:30 01/24/18 09:00 (Milk Of Magnesia Liq) 30 ml DAILY PRN PO 01/23/18 15:30 (Mag-Al Plus Susp Liq) 30 ml Q6H PRN PO 01/23/18 15:30 (Habitrol 21 Mg Patch.24 Hr) 1 patch DAILY PRN T-DERMAL 01/23/18 15:30 (Cogentin) 1 mg Q12H PRN PO 01/23/18 15:30 (Cogentin Inj) 1 mg Q12H PRN IM 01/23/18 15:30 (Levemir Inj) 30 units HS SQ 01/23/18 21:00 6/4/18 21:00 (Zofran Odt) 4 mg Q6H PRN PO 01/24/18 11:00 01/24/18 13:40 (Lipitor) 40 mg HS PO 01/24/18 21:00 A/P Assessment and Plan 37-year-old female with history of type 2 diabetes, hyperlipidemia, asthma, hypothyroidism, anxiety, depression, admitted to inpatient psychiatry for depression. Hospitalist consulted for medical management. Depression, acute mood disorder, anger: acute. Admitted voluntarily. -Continue management per psychiatry -Currently on Lexapro, Abilify, and Xanax as needed Type 2 diabetes: Poorly controlled -Continue patient's metformin 1000 mg daily -Increase Levemir to 30 units hs -Monitor Accu-Cheks and cover with SSI -Hemoglobin A1c pending -Diabetic diet Nausea/diarrhea/epigastric pain: Possibly secondary to metformin or psychiatric medications, however rule out other etiologies. Could also be marijuana related. -Check lipase and LFTs -Start Protonix -Avoid NSAIDs -Zofran ODT prn nausea/vomiting, Tums prn dyspepsia -Monitor electrolytes, replace as needed -Check stool studies -Consider abdominal CT vs GI consult if symptoms persist -Start lactinex/imodium if stool studies negative Hyperlipidemia: LDL goal less than 70 with history of diabetes -LDL currently 121 -Started the patient on statin, discussed risks -Monitor LFTs Asthma: Chronic, stable, does not appear to be an exacerbation -Continue Symbicort, albuterol inhaler as needed Hypothyroidism: Chronic -Continue patient's Synthroid DVT prophylaxis: Patient is ambulatory Discharge Planning Will continue to monitor blood sugars and GI complaints. F/up on labs and stool studies. Jessie Carrera PA-C Jan 24, 2018 4:26 pm
[2018-01-24 16:41] LABS: HEMOGLOBIN A1C 7.8 % (4.3-6.0)
[2018-01-24] MEDS ORDERED: CALCIUM CARBONATE 500 MG CHEWABLE TAB CHEW PRN (17:00)
[2018-01-24] MEDS ORDERED: PANTOPRAZOLE SOD 40 MG DELAYED RELEASE TAB PO ONE (17:00)
[2018-01-24] MEDS ORDERED: ALUMINUM/MAGNESIUM/SIMETH 30 ML CUP PO PRN (17:00)
[2018-01-24 17:59] VITALS: BP 121/78; PULSE 75; RESP 18; TEMP 98.2; O2SAT 99
[2018-01-24] MEDS: diphenhydrAMINE HCL 50 MG CAP PO PRN (21:16)
[2018-01-24] MEDS: ATORVASTATIN 40 MG TAB PO SCH (21:16)
[2018-01-24] MEDS: INSULIN DETEMIR 100 UNITS/ML VIAL SQ SCH (21:17)
[2018-01-25] MEDS: LEVOTHYROXINE SODIUM 75 MCG TAB PO SCH (06:05)
[2018-01-25] MEDS: ONDANSETRON ODT 4 MG TAB PO PRN ×2 (06:05→08:59)
[2018-01-25 06:11] VITALS: BP 127/56; PULSE 78; RESP 16; TEMP 97.6; O2SAT 98
[2018-01-25] MEDS: INSULIN ASPART SUPPLEMENTAL SCALE SQ SCH ×4 (08:00→21:00)
[2018-01-25 08:18] LABS: ALBUMIN 3.2 GM/DL (3.4-5.0); BICARBONATE 23.2 MEQ/L (21.0-32.0); CALCIUM 8.2 MG/DL (8.5-10.1); CREATININE 0.66 MG/DL (0.50-1.00); DIRECT BILIRUBIN ADULT 0.1 MG/DL (0.0-0.2); MAGNESIUM 2.1 MG/DL (1.5-2.5)
[2018-01-25 08:20] LABS: INDIRECT BILIRUBIN 0.5 MG/DL (0.0-0.8); TOTAL BILIRUBIN ADULT 0.6 MG/DL (0.2-1.0)
[2018-01-25] MEDS: BUDESONIDE-FORMOTEROL 160/4.5 MCG INHALER INH SCH ×2 (08:36→23:11)
[2018-01-25] MEDS: ARIPiprazole 5 MG TAB PO SCH (08:37)
[2018-01-25] MEDS: ESCITALOPRAM OXALATE 20 MG TAB PO SCH (08:37)
[2018-01-25] MEDS: metFORMIN HCL 500 MG TAB PO SCH (08:37)
[2018-01-25] MEDS: metroNIDAZOLE 500 MG TAB PO SCH ×2 (08:56→13:42)
[2018-01-25] MEDS: ACETAMINOPHEN 325 MG TAB PO PRN (08:59)
[2018-01-25] MEDS ORDERED: PANTOPRAZOLE SOD 40 MG DELAYED RELEASE TAB PO SCH (09:00)
[2018-01-25] MEDS: ALPRAZolam 0.5 MG TAB PO PRN (09:55)
--- NOTE | 2018-01-25 10:54 | HHI.PYPN ---
Subjective Chief Complaint: Depression, irritability, SI Remarks Patient seen and examined with nurse. Chart reviewed. C. difficile PCR was positive, and I have started the patient on Flagyl pending further hospitalist input. Case discussed with nursing staff. Case discussed with counselor who will obtain collateral information from . On my examination today, the patient reports ongoing issues with irritability. She says that the isolation precautions necessitated by the C. difficile have exacerbated this. I have discussed with her transferring her to the medical psychiatric unit once a bed is available as the accommodations there might be more comfortable for a patient requiring isolation. She is agreeable to this, and I have left an order and also a message for the charge nurse to arrange for the transfer. Mood remains a little bit dysphoric. Some difficulties with sleep. No side effects from medications. No new physical complaints. Patient says that brought in [place] paperwork, but I have checked on the chart and at the front end software engineer and also with coagulating bath operator and we cannot locate this. Counselor will ask to bring in another copy of the paperwork. Review of Systems Except as stated in HPI: all other systems reviewed are Neg Mental Status Examination Appearance: Appropriate Consciousness: Alert Orientation: x4 Motor Activity: Other (No abnormal motor movements noted) Speech: Unremarkable Language: Adequate Fund of Knowledge: Adequate Attention and Concentration: Adequate Memory: Unremarkable (Grossly intact on clinical exam) Mood: Irritable (Ongoing) Affect: Appropriate Thought Process & Associations: Intact, Logical, Linear Thought Content: Appropriate Hallucination Type: None Delusion Type: None Suicidal Ideation: No Suicidal Plan: No Suicidal Intention: No Homicidal Ideation: No Homicidal Plan: No Homicidal Intention: No Insight: Fair Judgment: Impulsive Results Labs Test 01/24/18 16:50 01/25/18 07:03 Stool C. difficile Toxin (PCR) POSITIVE Stl C. difficile Toxin Epiderm 027 PRESUMPTIVE NEGATIVE Blood Urea Nitrogen 4 MG/DL Creatinine 0.66 MG/DL Random Glucose 181 MG/DL Total Protein 7.0 GM/DL Albumin 3.2 GM/DL Calcium Level 8.2 MG/DL Magnesium Level 2.1 MG/DL Alkaline Phosphatase 75 U/L Aspartate Amino Transf (AST/SGOT) 37 U/L Alanine Aminotransferase (ALT/SGPT) 75 U/L Total Bilirubin 0.6 MG/DL Direct Bilirubin 0.1 MG/DL Sodium Level 138 MEQ/L Potassium Level 3.1 MEQ/L Chloride Level 104 MEQ/L Carbon Dioxide Level 23.2 MEQ/L Anion Gap 11 MEQ/L Estimat Glomerular Filtration Rate 100 ML/MIN Indirect Bilirubin 0.5 MG/DL Date/Time Source Procedure Growth Status 01/24/18 16:50 Stool Stool Cryptosporidium Exam Pending Resulted 01/24/18 16:50 Stool Stool Giardia Antigen (BOB) Pending Resulted 01/24/18 16:50 Stool Stool Stool Occult Blood (BOB) - Final HEMOCCULT NEGATIVE Resulted Labs reviewed. Ongoing hypokalemia despite normal magnesium levels. Vitals/IOs Vital Signs Date Time Temp Pulse Resp B/P (MAP) Pulse Ox O2 Delivery O2 Flow Rate FiO2 01/25/18 06:11 97.6 78 16 127/56 (79) 98 01/23/18 06:43 Room Air Assessment & Plan Problem List: (1) Major depressive disorder, recurrent, moderate ICD Codes: F33.1 - Major depressive disorder, recurrent, moderate Assessment & Plan Titrate Abilify to 7.5 mg daily. Initiate potassium supplement. Flagyl for C. difficile. Transfer to medical psychiatric unit when a bed is available. Follow-up hospitalist recommendations. Continue other medications and care as ordered. Justification for Cont. Inpt. Medication changes. Risk for decompensation in less restrictive environment. Complicating conditions. Discharge Planning Pending psychiatric stabilization Request HC Surrog/Guard Advoc?: No Dewey Smith MD Jan 25, 2018 10:54
[2018-01-25] MEDS ORDERED: PILL SPLITTER OTHER PRN (11:30)
[2018-01-25] MEDS: POTASSIUM CHLORIDE 10 MEQ CONTROLLED RELEASE TAB PO SCH (14:37)
[2018-01-25] MEDS: LACTOBACILLUS ACIDOPHILUS TAB PO SCH ×2 (15:32→21:40)
--- NOTE | 2018-01-25 15:44 | HHI.PR ---
Subjective Remarks Follow-up visit C. difficile, abdominal pain. Patient seen and examined today. Reports she continues to have abdominal pain midepigastric region. States that she continues to have diarrhea, loose, liquid. She does not want to eat because of this. States that every time she eats something she goes to the bathroom right away. Patient is worried about it. Discussed with patient course of C. difficile and Treatment plan. Otherwise, she denies fevers, chills , nausea, vomiting. She denies shortness of breath, chest pain, palpitations, headaches, dizziness. Denies dysuria. Objective Vitals Vital Signs Date Time Temp Pulse Resp B/P (MAP) Pulse Ox O2 Delivery O2 Flow Rate FiO2 01/25/18 06:11 97.6 78 16 127/56 (79) 98 01/24/18 17:59 98.2 75 18 121/78 (92) 99 Result Diagram: 01/22/18 1517 01/25/18 0703 Objective Remarks GENERAL: This is a well-nourished, well-developed patient, in no apparent distress. SKIN: Warm and dry HEENT: Normocephalic. Pupils equal round and reactive. Nose without bleeding. Airway patent. NECK: Trachea midline. No JVD. Supple. CARDIOVASCULAR: Regular rate and rhythm without murmurs, gallops, or rubs. RESPIRATORY: Clear to auscultation. Breath sounds equal bilaterally. No wheezes , rales, or rhonchi. GASTROINTESTINAL: Abdomen soft, nondistended. Bowel Sounds normoactive x4. Midepigastric region tender to palpate. No mass felt MUSCULOSKELETAL: Extremities without clubbing, cyanosis, or edema. NEUROLOGICAL: Awake and alert. Oriented to time, place, person. No focal neuro deficit. Moves all extremities. Normal speech. A/P Assessment and Plan 37-year-old female with history of type 2 diabetes, hyperlipidemia, asthma, hypothyroidism, anxiety, depression, admitted to inpatient psychiatry for depression. Hospitalist consulted for medical management. Depression, acute mood disorder, anger: acute. Admitted voluntarily. -Continue management per psychiatry -Currently on Lexapro, Abilify, and Xanax as needed C. difficile, acute -Nausea/diarrhea/epigastric pain -Possibly aggravated by metformin use, psychiatric medications, also patient has previous marijuana use -DC Protonix for now, switch over to famotidine twice daily -She was started on Flagyl by primary team, will switch over to vancomycin as clinical guidelines have shown vancomycin is superior to Flagyl even on first occurrence of C. difficile -Start Lactinex twice daily increase to 3 times daily if necessary. Zofran as needed -Yogurt with meals, sugar-free -Continue to monitor patient Type 2 diabetes: Poorly controlled -Continue patient's metformin 1000 mg daily -Increase Levemir to 30 units hs -Monitor Accu-Cheks and cover with SSI -Hemoglobin A1c -Diabetic diet Hyperlipidemia: LDL goal less than 70 with history of diabetes -LDL currently 121 -Started the patient on statin, discussed risks -Monitor LFTs Asthma: Chronic, stable, does not appear to be an exacerbation -Continue Symbicort, albuterol inhaler as needed Hypothyroidism: Chronic -Continue patient's Synthroid DVT prophylaxis: Patient is ambulatory Arturo Lindsey Jan 25, 2018 15:44
[2018-01-25] MEDS ORDERED: POTASSIUM CHLORIDE 10 MEQ CONTROLLED RELEASE TAB PO ONE (16:00)
[2018-01-25] MEDS: ACETAMINOPHEN/HYDROcodone 325 MG/5 MG TAB PO PRN (16:14)
[2018-01-25] MEDS: VANCOMYCIN 500 MG VIAL (FOR ORAL USE ONLY) PO SCH ×2 (18:00→23:11)
[2018-01-25] MEDS: ATORVASTATIN 40 MG TAB PO SCH (21:39)
[2018-01-25] MEDS: diphenhydrAMINE HCL 50 MG CAP PO PRN (21:39)
[2018-01-25] MEDS: FAMOTIDINE 20 MG TAB PO SCH (21:40)
[2018-01-25] MEDS: INSULIN DETEMIR 100 UNITS/ML VIAL SQ SCH (21:40)
[2018-01-26] MEDS: ONDANSETRON ODT 4 MG TAB PO PRN ×2 (02:07→09:19)
[2018-01-26] MEDS: ACETAMINOPHEN/HYDROcodone 325 MG/5 MG TAB PO PRN ×2 (02:10→09:34)
[2018-01-26] MEDS: LEVOTHYROXINE SODIUM 75 MCG TAB PO SCH (05:53)
[2018-01-26] MEDS: INSULIN ASPART SUPPLEMENTAL SCALE SQ SCH ×2 (08:00→11:35)
[2018-01-26] MEDS ORDERED: ARIPiprazole 5 MG TAB PO SCH (09:00)
[2018-01-26] MEDS: FAMOTIDINE 20 MG TAB PO SCH (09:20)
[2018-01-26] MEDS: VANCOMYCIN 500 MG VIAL (FOR ORAL USE ONLY) PO SCH ×2 (09:20→13:00)
[2018-01-26] MEDS: POTASSIUM CHLORIDE 10 MEQ CONTROLLED RELEASE TAB PO SCH (09:20)
[2018-01-26] MEDS: ESCITALOPRAM OXALATE 20 MG TAB PO SCH (09:20)
[2018-01-26] MEDS: LACTOBACILLUS ACIDOPHILUS TAB PO SCH (09:20)
[2018-01-26] MEDS: metFORMIN HCL 500 MG TAB PO SCH (09:21)
[2018-01-26] MEDS: BUDESONIDE-FORMOTEROL 160/4.5 MCG INHALER INH SCH (09:21)
[2018-01-26] MEDS ORDERED: LACT PO (13:44)
[2018-01-26] MEDS ORDERED: KLOR10TA PO (13:44)
[2018-01-26] MEDS ORDERED: LEVO.075 PO (13:44)
[2018-01-26] MEDS ORDERED: LEVEMIR SQ (13:44)
[2018-01-26] MEDS ORDERED: METF500 PO (13:44)
[2018-01-26] MEDS ORDERED: VANC500I3 PO (13:44)
[2018-01-26] MEDS ORDERED: ARIP1TAB11 PO (13:44)
[2018-01-26] MEDS ORDERED: ATOR40TA16 PO (13:44)
[2018-01-26] MEDS ORDERED: NOVOLOGP2 SQ (13:44)
[2018-01-26] MEDS ORDERED: FAMO20TA2 PO (13:44)
--- NOTE | 2018-01-26 13:44 | HHI.PR ---
Subjective Remarks Follow-up visit C. difficile, abdominal pain. Patient seen and examined today. Reports she is feeling much better. Abdominal pain has been diminished. Also patient states diarrhea only 1 today. Requesting to go home if cleared. Objective Vitals I/O 01/25/18 01/25/18 01/25/18 01/26/18 01/26/18 01/26/18 07:00 15:00 23:00 07:00 15:00 23:00 Intake Total 240 ml 240 ml Balance 240 ml 240 ml Intake Oral 240 ml 240 ml Result Diagram: 01/22/18 1517 01/25/18 0703 Objective Remarks GENERAL: This is a well-nourished, well-developed patient, in no apparent distress. SKIN: Warm and dry HEENT: Normocephalic. Pupils equal round and reactive. Nose without bleeding. Airway patent. NECK: Trachea midline. No JVD. Supple. CARDIOVASCULAR: Regular rate and rhythm without murmurs, gallops, or rubs. RESPIRATORY: Clear to auscultation. Breath sounds equal bilaterally. No wheezes , rales, or rhonchi. GASTROINTESTINAL: Abdomen soft, nondistended. Bowel Sounds normoactive x4. Midepigastric region tender to palpate. No mass felt MUSCULOSKELETAL: Extremities without clubbing, cyanosis, or edema. NEUROLOGICAL: Awake and alert. Oriented to time, place, person. No focal neuro deficit. Moves all extremities. Normal speech. A/P Assessment and Plan 37-year-old female with history of type 2 diabetes, hyperlipidemia, asthma, hypothyroidism, anxiety, depression, admitted to inpatient psychiatry for depression. Hospitalist consulted for medical management. Depression, acute mood disorder, anger: acute. Admitted voluntarily. -Continue management per psychiatry -Currently on Lexapro, Abilify, and Xanax as needed C. difficile, acute -Nausea/diarrhea/epigastric pain -Possibly aggravated by metformin use, psychiatric medications, also patient has previous marijuana use -DC Protonix for now, switch over to famotidine twice daily -She was started on Flagyl by primary team, will switch over to vancomycin as clinical guidelines have shown vancomycin is superior to Flagyl even on first occurrence of C. difficile -Start Lactinex twice daily increase to 3 times daily if necessary. Zofran as needed -Yogurt with meals, sugar-free -Discussed extensively with patient what to do at home. Complete C. difficile antibiotic vancomycin 10 days, use of Lactinex, use of yogurt. Handwashing and using her own bathroom, wiping down with bleach. Follow-up with PCP. Type 2 diabetes: Poorly controlled -Continue patient's metformin 1000 mg daily -Increase Levemir to 30 units hs -Monitor Accu-Cheks and cover with SSI -Hemoglobin A1c -Diabetic diet Hyperlipidemia: LDL goal less than 70 with history of diabetes -LDL currently 121 -Started the patient on statin, discussed risks -Monitor LFTs Asthma: Chronic, stable, does not appear to be an exacerbation -Continue Symbicort, albuterol inhaler as needed Hypothyroidism: Chronic -Continue patient's Synthroid DVT prophylaxis: Patient is ambulatory Stable from Hospitalist standpoint. We will sign off. Reconsult as needed. Medically cleared for discharge Arturo Lindsey Jan 26, 2018 13:44
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
== END 2018-01-26 15:50 | disposition home or self-care (01) | DRG 885 ==
LOC: NEPD 14:14 → NEDA 01-23 15:20 → H260 01-23 21:46 → H4EA 01-25 17:12
PROVIDERS: ADMIT Psychiatry & Neurology Psychiatry; ATTEND Psychiatry & Neurology Psychiatry
DX: F33.1 Major depressive disorder, recurrent, moderate (principal); A04.72 Enterocolitis due to Clostridium difficile, not specified as recurrent; E11.65 Type 2 diabetes mellitus with hyperglycemia; Z79.4 Long term (current) use of insulin; Z91.14 Patient's other noncompliance with medication regimen; F12.90 Cannabis use, unspecified, uncomplicated; J45.909 Unspecified asthma, uncomplicated; E78.5 Hyperlipidemia, unspecified; E03.9 Hypothyroidism, unspecified; Z87.891 Personal history of nicotine dependence
CPT/HCPCS: 80048; 80053; 80061; 80076; 80307; 81001; 82272; 82948; 83036; 83735; 84443; 84703; 85025; 87328; 87329; 87493; 87506; J1815; Q0163

== ENCOUNTER 2018-02-06 12:52 | Emergency (ER) | payer OTHER ==
[~2018-02-06] VITALS: Ht 165.1 cm; Wt 92.6 kg
[~2018-02-06 12:52] MED LIST changes: -ALBUAER3 INH; +ARIP1TAB11 PO; +ATOR40TA16 PO; +FAMO20TA2 PO; +KLOR10TA PO; +LACT PO; -LANTUS2P SQ; +LEVEMIR SQ; -LEVO.05 PO; +LEVO.075 PO; -METF-382 PO; +METF500 PO; +NOVOLOGP2 SQ; -TOPI200T7 PO; +VANC500I3 PO; -ZOFR4TAB3 SL
[2018-02-06 12:55] VITALS: BP 125/95; PULSE 97; RESP 16; TEMP 98.6; O2SAT 96
[2018-02-06] MEDS ORDERED: TRAZ50TA12 PO (13:13)
[2018-02-06] MEDS ORDERED: LANTUS2P SQ (13:13)
[2018-02-06] MEDS ORDERED: METF500T PO (13:13)
[2018-02-06] MEDS ORDERED: LURA20TA PO (13:13)
[2018-02-06] MEDS ORDERED: HYDR-3133 PO (13:13)
[2018-02-06] MEDS ORDERED: DAPA1TAB3 PO (13:13)
[2018-02-06] MEDS ORDERED: SODIUM CHLOR 0.9% 1000 ML INJ 1,000 ML IV SCH (13:19)
[2018-02-06] MEDS ORDERED: SODIUM CHLORIDE 0.9% FLUSH 10 ML FLUSH IV FLUSH PRN (13:30)
[2018-02-06] MEDS ORDERED: MORPHINE SULFATE 4 MG/ML INJ IV PUSH ONE (13:30)
[2018-02-06] MEDS ORDERED: ALUMINUM/MAGNESIUM/SIMETH 30 ML CUP PO ONE (13:30)
[2018-02-06] MEDS ORDERED: LIDOCAINE VISCOUS 2% SOLN 15 ML UDC PO ONE (13:30)
[2018-02-06] MEDS ORDERED: METOCLOPRAMIDE HCL 10 MG/2 ML VIAL IV PUSH ONE (13:30)
--- NOTE | 2018-02-06 13:31 | PD ---
HPI Chief Complaint: Abdominal Pain Time Seen by Provider: 13:13 Travel History International Travel<30 days: No Contact w/Intl Traveler<30days: No Traveled to known affect area: No History of Present Illness HPI Patient is a 37-year-old female with history of a cholecystectomy as well as a hysterectomy who presents the emergency room with complaints of abdominal pain for the past 2 weeks. Patient reports that for the past 2 weeks, she has been having diffuse abdominal pain, reports that most of her pain is located to her upper abdomen, reports that pain does radiate to her back and to her lower abdomen. Reports that she has been having nausea and vomiting and did have diarrhea but now feels constipated. Patient's last bowel movement was yesterday. Patient reports that her daughter is sick with similar symptoms. Patient denies any fevers or chills, reports that eating does exacerbate her symptoms. Patient reports that over the past 2 weeks, she has had decreased p.o. intake as she has been very uncomfortable. Patient denies any recent travels or trips. Patient also reports that she has noticed some dysuria, urinary urgency and frequency. 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 PFSH Past Medical History Hx Anticoagulant Therapy: No Asthma: Yes Blood Disorders: No Anxiety: Yes Depression: Yes Cancer: No (Per pt) Chemotherapy: No Diabetes: Yes (type 2) Patient Takes Glucophage: Yes (LANTUS/METFORMIN) Diminished Hearing: No Endocrine: Yes Gastrointestinal Disorders: Yes (OCCAS ACID REFLUX ) Genitourinary: No Headaches: Yes (Migraines often) Hepatitis: No Hiatal Hernia: No Heparin Induced Thrombocytopen: No Hypertension: No Immune Disorder: No Implanted Vascular Access Dvce: No Musculoskeletal: No Neurologic: No Psychiatric: Yes (Depression, anxiety) Reproductive: Yes (ENDOMETRIOSIS) Respiratory: Yes (asthma) Migraines: Yes Radiation Therapy: No Seizures: No (Per pt) Sickle Cell Disease: No Thyroid Disease: Yes Tetanus Vaccination: Unknown Influenza Vaccination: No ?: Not : 2 Para: 2 Tubal Ligation: Yes (1999) Past Surgical History Abdominal Surgery: Yes (gallbladder mesh removal and hernia repair) AICD: No Arteriovenous Shunt: No Body Medical Devices: NONE Cardiac Surgery: No Cholecystectomy: Yes Ear Surgery: No Endocrine Surgery: No Eye Surgery: No Genitourinary Surgery: No Gynecologic Surgery: Yes (hysterctomy, ovary/cyst removed) Hysterectomy: Yes Insulin Pump: No Joint Replacement: No Neurologic Surgery: No Oral Surgery: No Pacemaker: No Thoracic Surgery: No Other Surgery: Yes (HERNIA REPAIR) Social History Alcohol Use: Yes (occ) Tobacco Use: No (QUIT 2014) Substance Use: Yes (MJ) Allergies-Medications (Allergen,Severity, Reaction): Coded Allergies: No Known Allergies (Unverified Allergy, Unknown, 02/06/18) Reported Meds & Prescriptions Reported Meds & Active Scripts Active Synthroid (Levothyroxine Sodium) 75 Mcg Tab 75 Mcg PO DAILY@0600 15 Days Famotidine 20 Mg Tab 20 Mg PO BID 15 Days Klor-Con 10 (Potassium Chloride) 10 Meq Tab 10 Meq PO DAILY 15 Days Atorvastatin (Atorvastatin Calcium) 40 Mg Tab 40 Mg PO HS 15 Days Reported Lantus Inj (Insulin Glargine) 1,000 Unit/10 Ml Vial 32 Units SQ HS Hydroxyzine HCl 25 Mg Tab 25 Mg PO TID Latuda (Lurasidone) 20 Mg Tab 20 Mg PO HS Trazodone (Trazodone HCl) 50 Mg Tab 50 Mg PO HS Farxiga (Dapagliflozin) 10 Mg Tab 10 Mg PO DAILY Metformin (Metformin HCl) 500 Mg Tab 500 Mg PO BIDPC Vitamin B12 (Cyanocobalamin (Vitamin B-12)) 2,500 Mcg Tab.chew 50,000 Mcg PO WEEKLY Advair Diskus Inh (Fluticasone-Salmeterol Inh) 250-50 Mcg/Blist Aer 1 Puff INH BID Rinse mouth after use. Review of Systems General / Constitutional: No: Fever, Chills Eyes: No: Visual changes HENT: No: Headaches Cardiovascular: No: Chest Pain or Discomfort Respiratory: No: Shortness of Breath Gastrointestinal: Positive: Nausea, Vomiting, Diarrhea, Abdominal Pain, Constipation Genitourinary: Positive: Urgency, Frequency, Dysuria Musculoskeletal: No: Pain Skin: No Rash Neurologic: No: Weakness Psychiatric: No: Depression Endocrine: No: Polydipsia Hematologic/Lymphatic: No: Easy Bruising Physical Exam Narrative GENERAL: mild distress SKIN: Focused skin assessment warm/dry. HEAD: Atraumatic. Normocephalic. EYES: Pupils equal and round. No scleral icterus. No injection or drainage. ENT: No nasal bleeding or discharge. Mucous membranes pink and moist. NECK: Trachea midline. No JVD. CARDIOVASCULAR: Regular rate and rhythm. No murmur appreciated. RESPIRATORY: No accessory muscle use. Clear to auscultation. Breath sounds equal bilaterally. GASTROINTESTINAL: Abdomen soft, diffusely tender with increased tenderness to palpation to upper abdomen, nondistended. Hepatic and splenic margins not palpable. MUSCULOSKELETAL: No obvious deformities. No clubbing. No cyanosis. No edema. NEUROLOGICAL: Awake and alert. No obvious cranial nerve deficits. Motor grossly within normal limits. Normal speech. PSYCHIATRIC: Appropriate mood and affect; insight and judgment normal. Data Data Last Documented VS Vital Signs Date Time Temp Pulse Resp B/P (MAP) Pulse Ox O2 Delivery O2 Flow Rate FiO2 02/06/18 13:47 16 96 Room Air 02/06/18 12:55 98.6 97 125/95 (105) Orders Orders Complete Blood Count With Diff (02/06/18 13:19) Comprehensive Metabolic Panel (02/06/18 13:19) Lipase (02/06/18 13:19) Prothrombin Time / Inr (Pt) (02/06/18 13:19) Act Partial Throm Time (Ptt) (02/06/18 13:19) Urinalysis - C+S If Indicated (02/06/18 13:19) Ct Abd/Pel W Iv Contrast(Rout) (02/06/18 13:19) Iv Access Insert/Monitor (02/06/18 13:19) Ecg Monitoring (02/06/18 13:19) Oximetry (02/06/18 13:19) NPO (02/06/18 13:19) Morphine Inj (Morphine Inj) (02/06/18 13:30) Sodium Chlor 0.9% 1000 Ml Inj (Ns 1000 M (02/06/18 13:19) Sodium Chloride 0.9% Flush (Ns Flush) (02/06/18 13:30) Al-Mag Hy-Si 40-40-4 Mg/Ml Liq (Mag-Al P (02/06/18 13:30) Lidocaine 2% Viscous (Xylocaine 2% Visco (02/06/18 13:30) Ed Urine Pregnancytest Poc (02/06/18 13:19) Metoclopramide Inj (Reglan Inj) (02/06/18 13:30) Chest, Single Ap (02/06/18 13:27) Drug Screen, Random Urine (02/06/18 13:27) Electrocardiogram (02/06/18 ) Morphine Inj (Morphine Inj) (02/06/18 13:45) Iohexol 350 Inj (Omnipaque 350 Inj) (02/06/18 14:15) Ketorolac Inj (Toradol Inj) (02/06/18 15:15) Potassium Chloride (Kcl) (02/06/18 15:15) Labs Laboratory Tests Test 02/06/18 13:25 White Blood Count 7.9 TH/MM3 Red Blood Count 4.81 MIL/MM3 Hemoglobin 13.8 GM/DL Hematocrit 40.9 % Mean Corpuscular Volume 85.0 FL Mean Corpuscular Hemoglobin 28.6 PG Mean Corpuscular Hemoglobin Concent 33.6 % Red Cell Distribution Width 13.8 % Platelet Count 258 TH/MM3 Mean Platelet Volume 8.0 FL Neutrophils (%) (Auto) 64.6 % Lymphocytes (%) (Auto) 26.2 % Monocytes (%) (Auto) 5.7 % Eosinophils (%) (Auto) 2.1 % Basophils (%) (Auto) 1.4 % Neutrophils # (Auto) 5.1 TH/MM3 Lymphocytes # (Auto) 2.1 TH/MM3 Monocytes # (Auto) 0.4 TH/MM3 Eosinophils # (Auto) 0.2 TH/MM3 Basophils # (Auto) 0.1 TH/MM3 CBC Comment DIFF FINAL Differential Comment Prothrombin Time 10.5 SEC Prothromb Time International Ratio 1.0 RATIO Activated Partial Thromboplast Time 24.3 SEC Urine Color YELLOW Urine Turbidity CLEAR Urine pH 6.0 Urine Specific [place] 1.025 Urine Protein NEG mg/dL Urine Glucose (UA) 1000 OR GREATER mg/dL Urine Ketones NEG mg/dL Urine Occult Blood NEG Urine Nitrite NEG Urine Bilirubin NEG Urine Urobilinogen 0.2 MG/DL Urine Leukocyte Esterase NEG Urine Squamous Epithelial Cells 0-5 /hpf Microscopic Urinalysis Comment CULT NOT INDICATED Blood Urea Nitrogen 3 MG/DL Creatinine 0.55 MG/DL Random Glucose 148 MG/DL Total Protein 7.2 GM/DL Albumin 3.5 GM/DL Calcium Level 8.8 MG/DL Alkaline Phosphatase 80 U/L Aspartate Amino Transf (AST/SGOT) 33 U/L Alanine Aminotransferase (ALT/SGPT) 71 U/L Total Bilirubin 0.5 MG/DL Sodium Level 137 MEQ/L Potassium Level 3.2 MEQ/L Chloride Level 105 MEQ/L Carbon Dioxide Level 21.8 MEQ/L Anion Gap 10 MEQ/L Estimat Glomerular Filtration Rate 124 ML/MIN Lipase 266 U/L Urine Opiates Screen NEG Urine Barbiturates Screen NEG Urine Amphetamines Screen NEG Urine Benzodiazepines Screen NEG Urine Cocaine Screen POS Urine Cannabinoids Screen POS MDM Medical Decision Making Medical Screen Exam Complete: Yes Emergency Medical Condition: Yes Medical Record Reviewed: Yes Interpretation(s) Vital Signs Date Time Temp Pulse Resp B/P (MAP) Pulse Ox O2 Delivery O2 Flow Rate FiO2 02/06/18 12:55 98.6 97 16 125/95 (105) 96 Differential Diagnosis Gastritis, gastroenteritis, gastric ulcer, electrolyte abnormality, uti, pyelonephritis Narrative Course 37-year-old female presents the emergency room with complaints of abdominal pain which has been ongoing for the past 2 weeks. During the course of the patients emergency department visit, the patients history, examination, and differential diagnosis were reviewed with the patient. The patient was placed on a cardiac tech with oximetry and frequent blood pressure monitoring. The patient had an IV access obtained and blood work sent for analysis. The patient was initially provided IVF, IV morphine as well as gi cocktail and reglan for nausea The patients laboratory studies were reviewed and remarkable for CBC & BMP Diagram 02/06/18 13:25 Total Protein 7.2, Albumin 3.5, Calcium Level 8.8, Alkaline Phosphatase 80, Aspartate Amino Transf (AST/SGOT) 33, Alanine Aminotransferase (ALT/SGPT) 71 H, Total Bilirubin 0.5 UA positive for 1000 or greater glucose Radiology studies were reviewed and remarkable for Last Impressions Chest X-Ray 02/06/18 1327 Signed Impressions: CONCLUSION: 1. No acute abnormality or significant interval change. Abdomen/Pelvis CT 02/06/18 1319 Signed Impressions: CONCLUSION: 1. Mild hepatosplenomegaly with hepatic steatosis. 2. Scattered colonic diverticula in the sigmoid region without inflammatory ch amanda. 3. Mild ventral hernia in the upper anterior abdominal wall in the midline con taining a small amount of mesenteric fat. This appears less prominent on the cu rrent exam. There is also a mild umbilical hernia containing mesenteric fat whi ch appears unchanged. ct of abdomen and pelvis with no acute findings, she does have mild hepatosplenomegaly with hepatic steatosis, she also has scattered colonic diverticula with no inflammatory changes and mild ventral hernia, these findings were reviewed with patient, copy of her CT report was given to her. Patient is feeling much better at this time, labs are benign, patient with most likely gastroenteritis. Signs and symptoms of an acute abdomen reviewed with patient, she will return to the emergency room as needed. Patient thankful for care. Diagnosis Primary Impression: abdominal pain Additional Impressions: Hypokalemia Ventral hernia Qualified Codes: K43.9 - Ventral hernia without obstruction or gangrene Glucosuria Patient Instructions: General Instructions, Narcotic given in the ED Additional Instructions: Please provide patient with a copy of their lab work and studies at discharge* * Please follow up with your primary care doctor in 2-3 days Return to the ER if symptoms worsen or progress Return to the ER as needed Med/Other Pt SpecificInfo: Prescription(s) given Scripts Ondansetron (Zofran) 4 Mg Tab 4 MG PO Q6HR Y for NAUSEA OR VOMITING, #20 TAB 0 Refills Prov: Elizabeth Sotelo DO 02/06/18 Disposition: 01 DISCHARGE HOME Condition: Stable Elizabeth Sotelo DO Feb 06, 2018 13:31
[2018-02-06 13:40] LABS: AUTOMATED NEUTROPHIL # 5.1 TH/MM3 (1.8-7.7); BASOPHIL # 0.1 TH/MM3 (0-0.2); BASOPHIL % 1.4 % (0.0-2.0); EOSINOPHIL # 0.2 TH/MM3 (0-0.4); EOSINOPHIL % 2.1 % (0.0-4.0); HEMATOCRIT 40.9 % (35.0-46.0); HEMOGLOBIN 13.8 GM/DL (11.6-15.3); LYMPH % 26.2 % (9.0-44.0); LYMPHOCYTE # 2.1 TH/MM3 (1.0-4.8); MEAN CORPUSCULAR HEMOGLOBIN 28.6 PG (27.0-34.0); MEAN CORPUSCULAR HGB CONC 33.6 % (32.0-36.0); MONO % 5.7 % (0.0-8.0); MONOCYTE # 0.4 TH/MM3 (0-0.9); NEUT % 64.6 % (16.0-70.0); PLATELET COUNT 258 TH/MM3 (150-450); RED BLOOD COUNT 4.81 MIL/MM3 (4.00-5.30); RED CELL DISTRIBUTION WIDTH 13.8 % (11.6-17.2); WHITE BLOOD COUNT 7.9 TH/MM3 (4.0-11.0)
--- NOTE | 2018-02-06 13:40 | RADRPT ---
EXAM DATE: 02/06/2018 1:37 PM EDT AGE/SEX: 37 years / Female INDICATIONS: Chest pain. CLINICAL DATA: This is the patient's initial encounter. Patient reports that signs and symptoms have been present for 2 days and indicates a pain score of 6/10. MEDICAL/SURGICAL HISTORY: Diabetes mellitus type II. Hypothyroidism. Asthma None. COMPARISON: [facility], CHEST SINGLE AP, 01/23/2016. . FINDINGS: No new focal pleural or parenchymal opacities. Cardiomediastinal contours are within normal limits. B miranda thorax is intact. CONCLUSION: 1. No acute abnormality or significant interval change. Electronically signed by: Alber Kuhn MD 02/06/2018 1:39 PM EDT
[2018-02-06] MEDS ORDERED: MORPHINE SULFATE 2 MG/ML SYRINGE IV PUSH ONE (13:45)
[2018-02-06 13:47] VITALS: RESP 16; O2SAT 96
[2018-02-06 13:47] LABS: BILIRUBIN, URINE NEG (NEG); BLOOD, URINE NEG (NEG); GLUCOSE,URINE 1000 OR GREATER mg/dL (NEG); KETONE, URINE NEG (NEG); NITRITE,URINE NEG (NEG); URINE COLOR YELLOW (YELLW/STRAW); URINE LEUKOCYTE ESTERASE NEG (NEG)
[2018-02-06 13:52] LABS: CHLORIDE 105 MEQ/L (98-107); SODIUM (NA) 137 MEQ/L (136-145); SQUAMOUS EPITHELIAL CELL URINE 0-5 /hpf (0-5)
[2018-02-06 13:55] LABS: ALBUMIN 3.5 GM/DL (3.4-5.0); CALCIUM 8.8 MG/DL (8.5-10.1)
[2018-02-06 13:56] LABS: BICARBONATE 21.8 MEQ/L (21.0-32.0); BLOOD UREA NITROGEN 3 MG/DL (7-18); GLUCOSE,RANDOM 148 MG/DL (74-106)
[2018-02-06 13:57] LABS: PROTHROMBIN TIME - PATIENT 10.5 SEC (9.8-11.6)
[2018-02-06 13:59] LABS: ALT (GPT) 71 U/L (10-53); AST (GOT) 33 U/L (15-37); CREATININE 0.55 MG/DL (0.50-1.00); GLOMERULAR FILTRATION RATE 124 ML/MIN (>89)
[2018-02-06 14:00] LABS: TOTAL BILIRUBIN ADULT 0.5 MG/DL (0.2-1.0); TOTAL PROTEIN 7.2 GM/DL (6.4-8.2)
[2018-02-06 14:01] LABS: ALKALINE PHOSPHATASE 80 U/L (45-117)
[2018-02-06] MEDS ORDERED: IOHEXOL 350 MG/ML 10 ML VIAL (for RAD DIAG) IVCONTRAST ONE (14:15)
--- NOTE | 2018-02-06 14:50 | RADRPT ---
EXAM DATE: 02/06/2018 2:24 PM EDT AGE/SEX: 37 years / Female INDICATIONS: Diffuse abdominal pain, mostly upper quadrant. CLINICAL DATA: This is the patient's initial encounter. Patient reports that signs and symptoms have been present for 2 weeks and indicates a pain score of 7/10. MEDICAL/SURGICAL HISTORY: Diabetes mellitus type II. Cholecystectomy. Hysterectomy. Hernia rep air. ORAL CONTRAST: No oral contrast ingested. RADIATION DOSE: 21.32 CTDI (mGy) COMPARISON: [facility], CT ABDOMEN & PELVIS W CONTRAST, 12/18/2016. . TECHNIQUE: Multiple contiguous axial images were obtained through the abdomen and pelvis following b olus infusion of 90 ml Omnipaque 350 (iohexol) nonionic water-soluble contrast as a single exam dos e. No oral contrast ingested. Using automated exposure control and adjustment of the mA and/or kV ac cording to patient size, the radiation dose was kept as low as reasonably achievable to obtain optima l diagnostic quality images. FINDINGS: Lower Lungs: The visualized lower lungs are clear. Liver: The liver appears enlarged. There is decreased attenuation to the liver without focal hepatic lesions. Gallbladder is not seen. Spleen: The spleen is mildly enlarged measuring 13.8 cm in length. No focal splenic lesions are seen . Pancreas: Unremarkable without mass or calcification. Kidneys: Normal in size and shape. No evidence of mass or hydronephrosis. Adrenal Glands: Unremarkable. Aorta: The aorta and proximal iliac vessels are grossly unremarkable without aneurysmal dilation. Bowel/Mesentery: There are scattered colonic diverticula in the sigmoid region. Significant inflamma tory change is not seen. The appendix appears normal. Abdominal Wall: There is a defect in the superior anterior abdominal wall midline containing a minim al amount of mesenteric fat. This appears less prominent on the current exam. There is also a mild um bilical hernia containing mesenteric fat. This appears unchanged. Retroperitoneum: No evidence of adenopathy in the retrocrural, para-aortic, or deep pelvic regions. Bladder: Contours are smooth. Reproductive Organs: The patient is status post hysterectomy. There is a clip in the left adnexa. Inguinal: The inguinal region is unremarkable without evidence of adenopathy. Bony Structures: Unremarkable. CONCLUSION: 1. Mild hepatosplenomegaly with hepatic steatosis. 2. Scattered colonic diverticula in the sigmoid region without inflammatory change. 3. Mild ventral hernia in the upper anterior abdominal wall in the midline containing a small amount of mesenteric fat. This appears less prominent on the current exam. There is also a mild umbilical h ernia containing mesenteric fat which appears unchanged. Electronically signed by: Haja Marvin MD 02/06/2018 2:48 PM EDT
[2018-02-06] MEDS ORDERED: POTASSIUM CHLORIDE 10 MEQ CONTROLLED RELEASE TAB PO ONE (15:15)
[2018-02-06] MEDS ORDERED: KETOROLAC TROMETHAMINE 30 MG/ML (IVP) VIAL IV PUSH ONE (15:15)
[2018-02-06] MEDS ORDERED: ZOFR4TAB PO (15:27)
--- NOTE | 2018-02-07 17:08 | EKG ---
Date Performed: 02/06/2018 Time Performed: 13:51:08 PTAGE: 37 years EKG: Sinus rhythm NONSPECIFIC T-WAVE ABNORMALITY BORDERLINE ECG PREVIOUS TRACING : 12/18/2016 13.21 Since the previous tracing, no significant change noted DOCTOR: Sara Powers Interpretating Date/Time 02/07/2018 17:03:48
== END 2018-02-06 15:42 | disposition home or self-care (01) ==
LOC: PHED 12:52
DX: R10.9 Unspecified abdominal pain (principal); E87.6 Hypokalemia; K43.9 Ventral hernia without obstruction or gangrene; R81 Glycosuria; R94.31 Abnormal electrocardiogram [ECG] [EKG]; J45.909 Unspecified asthma, uncomplicated; E11.9 Type 2 diabetes mellitus without complications; R11.2 Nausea with vomiting, unspecified; R19.7 Diarrhea, unspecified; Z79.899 Other long term (current) drug therapy; R35.0 Frequency of micturition; R30.0 Dysuria
CPT/HCPCS: 71045; 74177; 80053; 80307; 81001; 83690; 84703; 85025; 85610; 85730; 93005; 96361; 96374; 96375; 99285; J1885; J2270; J2765; J7030; Q9967